=== PATIENT | female | born 1950 ===

== ENCOUNTER 2023-12-15 13:45 | Outpatient (AMB) | payer MEDICARE, MEDICAID, SELFPAY ==
--- NOTE | 2023-12-15 13:52 | MHC.OFFWIV ---
Intake Vital Signs 12/15/23 13:54 Height 5 ft 7 in Weight 105 lb BMI 16.4 BP 110/70 Blood Pressure Location Rt brachial Position Sitting Pulse 92 Pulse Source Pulse Oximeter Pulse Oximetry (%) 97 Intake Visit Reasons: DIRECTOR OF TRANSPORTATION Scrape on back of leg, infected? Intake Note: pt is here for scrape on leg and concerned of infection Patient Tobacco Use Status: Never used Tobacco Allergies peanut Allergy (Severe, Verified 12/15/23 13:54) Anaphylaxis Do you need a note to return to daycare/school/sports/work: No HPI HPI Comments History of Present Illness Details Patient is a 73-year-old female complaining of a wound to the back of her right calf. She tells me she was going down the stairs approximately 3 weeks ago with her home and she scraped the back of it. She did wash it out right away with hydrogen peroxide and has tried a variety of different ointments on it to make it heal including Neosporin. However she states that none of these have worked. She denies being diabetic. She is concerned that the wound is infected because it is not healing. [facility] Social History Patient Tobacco Use Status: Never used Tobacco Review of Systems Const All systems reviewed & are unremarkable except as noted in HPI and below Physical Exam Vital Signs: Last Vital Signs Pulse 92 12/15/23 13:54 BP 110/70 12/15/23 13:54 Pulse Ox 97 12/15/23 13:54 BMI result Body Mass Index 16.4 Const General: cooperative, healthy appearing, comfortable, no acute distress and well developed Orientation/consciousness: patient oriented x3 Limitations: no limitations HEENT Head: Yes normal to inspection Eyes General: appearance normal, both eyes and all related structures Neck Neck: Yes normal visual inspection and Yes full ROM Resp Effort & Inspection: normal respiratory effort and able to speak in complete sentences Skin Other: 3cm round ulceration on posterior right leg; no erythema, no warmth, no ecchymosis, no lesions Neuro General: patient oriented x3 Extrem General: Yes normal to inspection Assessment & Plan Assessment & Plan (1) Non-healing wound of right lower extremity: Code(s): S81.801A - Unspecified open wound, right lower leg, initial encounter Plan: Applied Xeroform with nonadherent dressing and gauze to keep in place, gave patient supplies so that she may change the dressing every 48 hours and after 1 week, she should start using Aquaphor and leave the wound and covered. If no improvement in her wound, she should follow up with her PCP Plan See above Coding Level of Care Code New Pt Level 4 (00936) Diagnoses Non-healing wound of right lower extremity S81.801A
[2023-12-15 13:54] VITALS: BP 110/70; PULSE 92; O2SAT 97; BMI 16.4
== END 2023-12-15 14:47 | disposition home or self-care (01) ==
PROVIDERS: Visit Provider Physician Assistant
DX: S81.801A Unspecified open wound, right lower leg, initial encounter (principal)

== ENCOUNTER → 2023-12-15 13:45 | Outpatient (BNVA) | payer MEDICARE, MEDICAID, SELFPAY | PROVIDERS: Visit Provider Physician Assistant | DX: S81.801A Unspecified open wound, right lower leg, initial encounter (principal) | CPT/HCPCS: 99202 ==

== ENCOUNTER 2024-01-29 12:30 | Outpatient (AMB) | payer MEDICARE, MEDICAID, SELFPAY ==
[2024-01-29 12:31] VITALS: BP 140/72; PULSE 86; O2SAT 93
--- NOTE | 2024-01-29 12:31 | AM.OFFWIN_ITS ---
Intake Vital Signs 3 01/29/24 12:31 Height 5 ft 7 in BP 140/72 H Blood Pressure Location Lt brachial Position Sitting Pulse 86 Pulse Source Pulse Oximeter Pulse Oximetry (%) 93 Intake Visit Reasons: EP Cut on back of RT leg Intake Note: pt is here for a wound that hasnt healed in over 1 month and 1/2. Patient Tobacco Use Status: Never used Tobacco Allergies peanut Allergy (Severe, Verified 01/29/24 12:32) Anaphylaxis Do you need a note to return to daycare/school/sports/work: No HPI HPI Comments 2 History of Present Illness0 Details Patient is a 73yo F who presents with R leg wound She hit it on metal over a month ago and was seen here Tx with xerform dressing without antibiotics Never followed up with PCP as she said she goes to [facility] and does not want to seek care there She denies fever or chills + worsening yellow drainage x a few days Some tenderness to the wound but surrounding area without pain Has not tried anything besides keeping clean and applying bandages She is a chronic smoker with COPD PFSH Social History Patient Tobacco Use Status: Never used Tobacco Review of Systems Const Denies chills and Denies fever(s) Resp Reports cough (chronic) Skin/Breast Reports sores and Reports wounds Physical Exam Vital Signs: Last Vital Signs Pulse 86 01/29/24 12:31 BP 140/72 H 01/29/24 12:31 Pulse Ox 93 01/29/24 12:31 General: Non-toxic, NAD. Speaking full sentences. Skin: Warm dry throughout. R posterior calf imaged above. Pt has oval approx 3cm x 2cm ulcerative region with central yellow drainage surrounded by erythema. Minimal tenderness to palpation surrounding skin edges. No malodorous smell. Eye: EOMI MSK: Full ROM extremities. Neurology: Alert. No aphasia or facial droop. Gait without abnormality Psych: Good mood and affect Assessment & Plan Assessment & Plan (1) Leg wound, right: Code(s): S81.801A - Unspecified open wound, right lower leg, initial encounter Qualifiers: Encounter type: initial encounter Qualified Code(s): S81.801A - Unspecified open wound, right lower leg, initial encounter Plan: Pt seen and evaluated Concern for PAD due to smoking hx and poor wound healing She has not seen PCP or wound care for this Referral to woundcare given Doxy with food She is aware that she needs good follow up about this as worsened infection could prove poor outcomes Dressing applied in office (2) Cellulitis: Code(s): L03.90 - Cellulitis, unspecified Qualifiers: Site of cellulitis: extremity Site of cellulitis of extremity: lower extremity Laterality: right Qualified Code(s): L03.115 - Cellulitis of right lower limb Plan: see above. All questions answered upon time of discharge Orders: Referrals 2 Wound Care Referral S81.801A - Unspecified open wound, right lower leg, initial encounter Medications: New 2 doxycycline hyclate 100 mg PO BID 20 caps 0RF Coding Level of Care Code Est Pt Level 3 (25126) Diagnoses Wound of right lower extremity, initial encounter S81.801A Encounter type: initial encounter Cellulitis of right lower extremity L03.115 Site of cellulitis: extremity Site of cellulitis of extremity: lower extremity Laterality: right
== END 2024-01-29 13:34 | disposition home or self-care (01) ==
PROVIDERS: Visit Provider Physician Assistant
DX: S81.801A Unspecified open wound, right lower leg, initial encounter (principal); L03.115 Cellulitis of right lower limb

== ENCOUNTER → 2024-01-29 12:30 | Outpatient (BNVA) | payer MEDICARE, MEDICAID, SELFPAY | PROVIDERS: Visit Provider Physician Assistant | DX: S81.801A Unspecified open wound, right lower leg, initial encounter (principal); L03.115 Cellulitis of right lower limb; W22.8XXA Striking against or struck by other objects, initial encounter; Y93.9 Activity, unspecified; Y92.9 Unspecified place or not applicable; Y99.9 Unspecified external cause status | CPT/HCPCS: 99212 ==

== ENCOUNTER 2024-03-02 13:12 | Outpatient (REF) | payer MEDICARE, OTHER, SELFPAY ==
--- NOTE | ~2024-03-02 | US_ITS ---
CLINICAL HISTORY: atherosclerosis, non-healing wounds Arterial duplex ultrasound bilateral lower extremity Comparison: None Findings: Biphasic flow in the left common femoral artery. Monophasic in the proximal left femoral artery. There appears to be heavy circumferential noncalcified atheromatous plaque in the proximal and mid femoral artery. No flow is seen within the distal aspect of the mid left femoral artery with large surrounding collateral vessels. No flow identified within the distal left femoral artery. Near the adductor hiatus there is reconstitution of the femoral artery. Monophasic flow seen from the popliteal artery into the calf vessels on the left. Monophasic flow within the right common femoral artery. The proximal, mid and distal right femoral artery are occluded without flow. Reconstitution of the level of the popliteal artery with monophasic flow into the calf vessels. No focal stenosis, aneurysm or occlusion identified. Velocities are within normal range. MARC: Right posterior tibial 0.38 Right dorsalis pedis 0.44 Left posterior tibial 0.44 Left dorsalis pedis is 0.49 IMPRESSION: 1. Occluded proximal mid and distal right SFA with reconstitution of the level of the popliteal artery. 2. Occluded mid and distal SFA on the left with reconstitution in the distal aspect of the superficial femoral artery just at the level of the adductor hiatus. 3. Flow with monophasic waveforms seen from the popliteal artery into the calf vessels bilaterally. 4. MARC suggest severe peripheral vascular disease bilaterally. This document has been electronically signed by: Annetta Sellers MD on 03/04/2024 05:45:41
== END 2024-03-02 13:13 | disposition home or self-care (01) ==
LOC: HO.US 13:12
PROVIDERS: PCP Internal Medicine; Visit Provider Surgery
DX: I70.232 Atherosclerosis of native arteries of right leg with ulceration of calf (principal); L97.812 Non-pressure chronic ulcer of other part of right lower leg with fat layer exposed
CPT/HCPCS: 93922; 93925

== ENCOUNTER → 2024-03-02 13:37 | Outpatient (BNV) | payer MEDICARE, SELFPAY | PROVIDERS: PCP Internal Medicine; Visit Provider Radiology Diagnostic Radiology | DX: I70.92 Chronic total occlusion of artery of the extremities (principal) | CPT/HCPCS: 93922 ==

== ENCOUNTER 2024-04-14 14:29 | Outpatient (AMB) | payer MEDICARE, SELFPAY ==
--- NOTE | 2024-04-14 14:37 | MHC.OFFWIV ---
Intake Vital Signs 04/14/24 14:38 Weight 87 lb BP 110/64 Blood Pressure Location Rt brachial Position Sitting Pulse 125 H Pulse Source Pulse Oximeter Temp 97.3 F Temp Source Oral Pulse Oximetry (%) 96 Oxygen Delivery Method Room Air Intake Visit Reasons: EP COPD, SOB Intake Note: Patient here for SOB,she does have COPD. Patient Tobacco Use Status: Never used Tobacco Allergies peanut Allergy (Severe, Verified 04/14/24 14:37) Anaphylaxis Do you need a note to return to daycare/school/sports/work: No HPI HPI Comments History of Present Illness Details This is a 73-year-old female with past medical history significant for chronic obstructive pulmonary disease who presented to the walk-in clinic today complaining of shortness of breath for the past several days. Patient states she has a history of COPD although she does not typically experience shortness of breath. She started to develop dyspnea on exertion about 3 days ago and this has been progressively worsening. She has a chronic dry cough and states she has not noticed any new or worsening cough and she has not noticed any sputum production or purulence. She denies any fevers or chills. She denies any upper respiratory symptoms such as congestion, rhinorrhea, sore throat. She denies any chest pain. She denies any hemoptysis. She states she does have occasional lightheadedness but denies any syncope or falls. Of note, patient recently underwent a vascular surgical procedure in which she had two stents placed in her right leg . She had this procedure on 03/31/24. Patient states she in on aspirin and eliquis for VTE prophylaxis following this procedure. Patient does have some swelling of her right foot but states that she recently stubbed her toe and believes it could be related to this. She is followed by wound care clinic for a non-healing wound to her right lower extremity. PFS Social History Patient Tobacco Use Status: Never used Tobacco Review of Systems Const All systems reviewed & are unremarkable except as noted in HPI and below Reports no additional complaints Eyes Reports no additional complaints ENT Reports no additional complaints Card Reports no additional complaints Resp Reports no additional complaints GI Reports no additional complaints Reports no additional complaints Musc Reports no additional complaints Skin/Breast Reports system reviewed and no additional complaints, except as documented Neuro Reports no additional complaints Psych Reports no additional complaints Endo Reports no additional complaints Glynn/Lymph Reports no additional complaints Aller/Immun Reports no additional complaints Physical Exam Vital Signs: Last Vital Signs Pulse 125 H 04/14/24 14:38 BP 110/64 04/14/24 14:38 Pulse Ox 96 04/14/24 14:38 Oxygen Delivery Method Room Air 04/14/24 14:38 Const Other: Vital signs reviewed. Constitutional: Non-toxic appearing. No acute distress. She is thin and frail appearing. HEENT: Normocephalic and atraumatic. PERRL/EOMI. Skin: Warm and dry. No rashes or lesions noted. Chronic wound of posterior right calf. Neck: Full and painless range of motion. No cervical lymphadenopathy. Cardio: Regular rate and rhythm. No murmurs, gallops, or rubs. + Edema of right lower foot. No JVD. Pulmonary: No respiratory distress. No accessory muscle usage. Diminished breath sounds throughout but otherwise clear to auscultation bilaterally without wheezing, crackles, or rhonchi. Gastrointestinal: Soft, non-tender, and non-distended in all 4 quadrants. Musculoskeletal: Normal range of motion in joints throughout the body. No deformity or other signs of injury. Neuro: Alert and oriented x4. Cranial nerves 2-12 grossly intact. No focal deficits appreciated. Psych: Normal mood and affect. Assessment & Plan Assessment & Plan (1) Shortness of breath on exertion: Code(s): R06.02 - Shortness of breath Plan: This is a 73-year-old female with past medical history significant for chronic obstructive pulmonary disease and recent vascular surgery with stent placement x 2 to the right lower extremity on 03/31/2024 who presented to the walk-in clinic complaining of shortness of breath with exertion for the past several days. The patient is maintaining her oxygen saturations on room air; however, she is moderately tachycardic with heart rate of 125 beats per minute. She was also found to have swelling of her right foot. Given patient's complaint of shortness of breath combined with tachycardia, right lower extremity swelling, and recent vascular surgery, there is high suspicion for PE/DVT (Wells score of 9.0 points [40.6% chance of PE]). I explained to the patient that PE/DVT is at the top of my differential diagnosis given her history and physical exam and given the fact that other diagnoses such as pneumonia, acute COPD excaerbation, or congestive heart failure seem less likely at this time and I do not have another explanation for her symptoms. Patient does not have any new or worsening cough or sputum production/purulence so pneumonia is unlikely (offered chest x-ray to definitively rule-out but patient declined at this time). Her lung sounds are diminished but clear to auscultation bilaterally without wheezing and she has no viral upper respiratory symptoms so acute COPD exacerbation or viral URI is unlikely. She has no crackles/rales or known cardiac history so acute congestive heart failure seems less likely. She has diminished but has not breath sounds at the bases so pneumothorax versus pleural effusion is unlikely (again, offered chest x-ray to definitively rule out but patient declined at this time). This thought process and differential diagnosis was explained to the patient in detail and in layman's terms. She was able to provide teach back and she is alert and oriented x 4 and in my medical opinion, she has the capacity to make her own medical decitions. I strongly recommended and advised that the patient proceed directly to the emergency room so PE/DVT can be definitively ruled out as an untreated PE/DVT can be fatal if untreated. Patient declined transfer to the emergency room at this time despite education regarding PE/DVT. I explained to the patient the PE can lead to , disability, and pain/suffering but she continues to decline transfer to the emergency room. Patient signed AMA paperwork. Patient requested prednisone treatment to see if this helps her symptoms but I explained to her that prednisone will not help her symptoms if her symptoms are caused by a PE. Patient verbalized her understanding but would like to try steroid treatment. She was given a prescription for a prednisone taper as detailed below. Patient was instructed to proceed directly to the emergency room if she were to develop worsening shortness of breath, worsening lower extremity edema, hypoxia (SpO2 less than 90%), or syncope. She was made aware that the emergency room is open and available 07/09 if she were to change her mind and wished to undergo further evaluation. Patient was extremely appreciative of the concern, education, and help provided at the walk-in clinic today. Medications: New prednisone Take 4 tablets daily x3 days followed by 3 tablets daily x3 days followed by 2 tablets daily x3 days followed by 1 tablet daily x3 days. 10 mg PO DIRECTED 30 tabs 0RF Coding Level of Care Code Est Pt Level 3 (53036) Diagnoses Shortness of breath on exertion R06.02
[2024-04-14 14:38] VITALS: BP 110/64; PULSE 125; TEMP 36.3; O2SAT 96
== END 2024-04-14 16:24 | disposition home or self-care (01) ==
PROVIDERS: PCP Internal Medicine; Visit Provider Physician Assistant Medical
DX: R06.02 Shortness of breath (principal)

== ENCOUNTER → 2024-04-14 14:29 | Outpatient (BNVA) | payer MEDICARE, SELFPAY | PROVIDERS: PCP Internal Medicine | DX: R06.02 Shortness of breath (principal) | CPT/HCPCS: 99212 ==

== ENCOUNTER 2024-04-26 12:22 | Emergency (ER) | payer MEDICARE, MEDICAID, SELFPAY ==
--- NOTE | ~2024-04-26 | US_ITS ---
EXAMINATION: US LOWER EXTREMITY VEINS LIMITED FOLLOW UP RIGHT HISTORY: pain COMPARISON: There are no prior studies for comparison. TECHNIQUE: Duplex and color Doppler sonographic examination of the deep venous system of the right lower extremity was performed. FINDINGS: The common femoral, superficial femoral, and popliteal veins are patent demonstrating normal compressibility, spontaneous flow, and augmentation. There is a normal color and spectral Doppler waveform appearance of the visualized deep venous system above the knee. The posterior tibial and peroneal veins are patent. Incidental note is made of a large amount of calcified plaque in the femoral artery. US/US venous duplex LE RT IMPRESSION: No evidence of acute DVT in the right lower extremity. Electronically signed by: Clem Alberto MD 04/26/2024 03:30 PM EDT
--- NOTE | ~2024-04-26 | XR_ITS ---
EXAMINATION: XR CHEST 2 VIEWS HISTORY: pain COMPARISON: There are no prior studies for comparison. FINDINGS: PA and lateral views of the chest are submitted. The lungs are hyperinflated, consistent with COPD. There is a suggestion of a faint 10 mm nodular opacity in the left upper lobe. The lungs are otherwise clear. There is no pleural effusion, pneumothorax, or pulmonary vascular congestion. The heart is normal in size. There is degenerative disc disease of the spine. XR/XR chest 2V IMPRESSION: COPD. Possible left upper lobe nodule. Further evaluation with chest CT is recommended. Electronically signed by: Clem Alberto MD 04/26/2024 01:48 PM EDT
--- NOTE | ~2024-04-26 | CT_ITS ---
CLINICAL HISTORY: sob CT angiography chest using contrast. 3-D postprocessing Comparison: CR/LA/SR - XR CHEST 2V - 04/26/24 13:22 EDT Findings: No pulmonary embolism. No thoracic aorta aneurysm. Heart size within normal limits. RV/LV ratio normal. Coronary artery calcifications and/or coronary artery stents are visualized. Moderate to severe centrilobular emphysema present. Mild biapical pleural-parenchymal thickening/scarring. No focal pulmonary consolidation, pneumothorax, or pleural effusion. Trace left basilar subsegmental atelectasis versus scarring. The lungs are hyperexpanded. Visualized upper abdomen unremarkable. Mild, chronic appearing T3 compression deformity present. Impression: 1. Negative for pulmonary embolism. 2. Moderate to severe centrilobular emphysema with associated pulmonary hyperexpansion. No focal pulmonary consolidation, pneumothorax, or pleural effusion. This document has been electronically signed by: Jorge Luis Madrigal MD on 04/26/2024 21:26:18
[2024-04-26 12:47] VITALS: BP 139/77; PULSE 118; RESP 19; TEMP 36.6; O2SAT 96; BMI 16.4
--- NOTE | 2024-04-26 12:53 | ED.EXTPRO ---
HPI - Extremity Problem General Chief complaint: Extremity Injury, Upper Stated complaint: COPD Time Seen by Provider: 04/26/24 19:45 Source: patient Limitations: no limitations History of Present Illness ED Provider: Obdulia Scott PA-C HPI Narrative: 73 y/o F with hx of peripheral artery disease, peripheral vascular disease on apixaban, hypertension, hyperlipidemia, ongoing tobacco abuse, COPD, presents for evaluation of shortness of breath. Patient states over the past 2 weeks she has had progression of her baseline shortness of breath. She is now noting dyspnea with exertion with the activities of daily living. Denies chest pain, fever, sick contacts with viral symptoms. Related Data Home Medications ?Medication ?Instructions ?Recorded ?Confirmed amlodipine 5 mg tablet mg PO 12/15/23 budesonide 160 mcg-glycopyr 9 inh inhalation 12/15/23 mcg-formot 4.8 mcg/actuation HFA inhaler (Breztri Aerosphere) ipratropium 0.5 mg-albuterol 3 mg ml inhalation 12/15/23 (2.5 mg base)/3 mL nebulization soln ipratropium 20 mcg-albuterol 100 1 puff inhalation QID 12/15/23 mcg/actuation mist for inhalation (Combivent Respimat) apixaban 5 mg tablet (Eliquis) mg PO BID 04/14/24 Previous Rx's ?Medication ?Instructions ?Recorded prednisone 10 mg tablet 10 mg PO DIRECTED #30 tabs 04/14/24 amoxicillin 875 mg-potassium 1 tab PO Q12H #19 tabs 04/26/24 clavulanate 125 mg tablet azithromycin 250 mg tablet 250 mg PO DAILY 4 days #4 tabs 04/26/24 prednisone 20 mg tablet 40 mg (2 x 20 mg) PO DAILY #8 tabs 04/26/24 Allergies Allergy/AdvReac Type Severity Reaction Status Date / Time peanut Allergy Severe Anaphylaxis Verified 04/26/24 12:52 Review of Systems Review of Systems: Yes all other systems are reviewed and are negative Constitutional: Constitutional: Denies fatigue and Denies fever(s) Cardiovascular: Cardiovascular: Denies chest pain, Reports dyspnea and Reports dyspnea on exertion Respiratory: Respiratory: Denies chest congestion, Reports dyspnea, Reports dyspnea on exertion and Denies wheezing Endocrine: Endocrine: Denies fatigue Allergic/Immunologic: Allergic/Immunologic: Denies wheezing PMFSH Past Medical History Attestation statement: The following information was validated with the patient. Social History Social History Patient Tobacco Use Status: Never used Tobacco Smoked in Last 30 Days: No Use of substances other than those prescribed or required for medical reasons: No Advance Directives: No Advance Directives Information Provided: No Do you have a plan to hurt others: No Plan Physical Exam Vital Signs: Vital Signs: Last Vital Signs Temp 98 F 04/26/24 18:46 Pulse 122 H 04/26/24 18:46 Resp 19 04/26/24 18:46 BP 146/77 H 04/26/24 18:46 Pulse Ox 94 04/26/24 18:46 O2 Del Method Room Air 04/26/24 18:46 BMI result Body Mass Index 16.4 Const: Other: Alert, Orientation/consciousness: patient oriented x3 Resp: Other: Nonlabored respirations, speaking in full sentences, or air movement, no wheezing no cough Cardio: Other: No peripheral edema Skin: Other: Warm dry no rash Neuro: General: patient oriented x3, gait normal, no focal motor deficits and CN's II-XI intact bilaterally Psych: Other: Cooperative Course Course Course Narrative: RME, this is a rapid medical exam performed by Tremaine Dudley please refer to primary provider for complete H&P- 73-year-old female with past medical history significant for peripheral artery disease and peripheral vascular disease, COPD presents for evaluation of shortness of breath and right leg pain. Patient had any a right leg angioplasty your name on March 29 for due to peripheral artery occlusion. She reports that she recently followed up with her vascular surgeon. She is here today primarily for shortness of breath and she feels like she can get a deep breathing. Her oxygen saturation is 95% on room air but she was tachycardic to about 120. Plan for basic labs, chest x-ray and DVT scan. Medications Administered Discontinued Medications Generic Name Dose Route Start Last Admin Trade Name Freq PRN Reason Stop Dose Admin Iohexol 100 ml 04/26/24 20:17 04/26/24 20:17 Iohexol 350 Mg/Ml 100 Ml Infus..Btl IV 04/26/24 20:18 65 ml ONCE ONE Administration Medical Decision Making Medical Decision Making MDM Narrative: 73 y/o F with hx of peripheral artery disease, peripheral vascular disease on apixaban, hypertension, hyperlipidemia, ongoing tobacco abuse, COPD, presents for evaluation of shortness of breath. Patient states over the past 2 weeks she has had progression of her baseline shortness of breath. She is now noting dyspnea with exertion with the activities of daily living. Denies chest pain, fever, sick contacts with viral symptoms. Problem: Peripheral arterial disease, peripheral vascular disease, COPD, ongoing tobacco abuse History: Per patient I have considered the following differential diagnoses: COPD exacerbation, bronchitis, pneumonia, PE, ACS, new heart failure Plan: ACS and new heart failure were both considered, Screening labs including cardiac enzymes, BNP, EKG and chest x-ray were obtained from triage. To note, she has no chest pain and she is not overtly hypertensive. Her presentation is not consistent with a COPD exacerbation, the patient was not actively coughing there was no wheezing, she is not hypoxic. There was no evidence of pneumonia on chest x-ray. I do feel her symptoms are likely secondary to progression of the COPD process itself. The patient was tachycardic, I am therefore considering PE, she has high-risk, we will defer the dimer and obtain a CTA. In discussion with the patient, she is not here for right lower extremity pain. She has a chronic wound, there has been no change in the wound, she is followed by wound care. She also does not have objective unilateral calf pain or swelling. A DVT study was ordered from triage it was negative. I did note that she has a leukocytosis, however she is frequently on steroids. have independently reviewed the following tests: Labs: Leukocytosis with left shift, thrombocytosis, no electrolyte abnormality, troponin x2 are flat, bnp 81 EKG: Normal sinus rhythm, rate of 90, ST and T-wave abnormality noted anterior leads, no active ischemic changes, QTC 457 Chest x-ray: XR/XR chest 2V IMPRESSION: COPD. Possible left upper lobe nodule. Further evaluation with chest CT is recommended. DVT study right lower extremity: FINDINGS: The common femoral, superficial femoral, and popliteal veins are patent demonstrating normal compressibility, spontaneous flow, and augmentation. There is a normal color and spectral Doppler waveform appearance of the visualized deep venous system above the knee. The posterior tibial and peroneal veins are patent. Incidental note is made of a large amount of calcified plaque in the femoral artery. US/US venous duplex LE RT IMPRESSION: No evidence of acute DVT in the right lower extremity. CT angio Findings: No pulmonary embolism. No thoracic aorta aneurysm. Heart size within normal limits. RV/LV ratio normal. Coronary artery calcifications and/or coronary artery stents are visualized. Moderate to severe centrilobular emphysema present. Mild biapical pleural-parenchymal thickening/scarring. No focal pulmonary consolidation, pneumothorax, or pleural effusion. Trace left basilar subsegmental atelectasis versus scarring. The lungs are hyperexpanded. Visualized upper abdomen unremarkable. Mild, chronic appearing T3 compression deformity present. Impression: 1. Negative for pulmonary embolism. 2. Moderate to severe centrilobular emphysema with associated pulmonary hyperexpansion. No focal pulmonary consolidation, pneumothorax, or pleural effusion. Lab Data 04/26/24 13:04 04/26/24 13:04 Labs: Lab Results 04/26/24 04/26/24 Range/Units 13:04 20:36 WBC 18.1 H (4.8-10.8) X10*3/uL RBC 3.96 L (4.20-5.50) X10*6/uL Hgb 11.9 L (12.0-16.0) g/dl Hct 37.0 (37.0-47.0) % MCV 93.4 (80.0-98.0) fL MCH 30.1 (27.0-33.0) pg MCHC 32.2 (31.0-35.0) g/dl RDW 12.8 (11.0-16.0) % Plt Count 439 H (160-400) X10*3/uL MPV 8.0 L (9.4-12.3) fL Immature Gran % (Auto) Cancelled Neut % (Auto) Cancelled Lymph % (Auto) Cancelled [place] % (Auto) Cancelled Eos % (Auto) Cancelled Baso % (Auto) Cancelled Lymph # (Auto) Cancelled [place] # (Auto) Cancelled Eos # (Auto) Cancelled Baso # (Auto) Cancelled Abs Immat Gran (auto) Cancelled Absolute Neuts (auto) Cancelled Absolute Nucleated RBC 0.000 (0.0-0.012) X10*3/uL Nucleated RBC % (auto) 0.0 (0.0-0.2) /100WBC Neutrophils % (Manual) 66 (45-73) % Band Neutrophils % 0 L (3-5) % Lymphocytes % (Manual) 21 (20-40) % Atypical Lymphs % (Man) 2 (0-6) % Monocytes % (Manual) 10 (2-11) % Eosinophils % (Manual) 1 (0-4) % Abs Neuts (Manual) 11.9 H (2.0-8.3) X10*3/uL Lymphocytes # (Manual) 3.8 (1.2-4.9) X10*3/uL Atyp Lymphs # (Manual) 0.4 x10*3/uL Monocytes # (Manual) 1.8 H (0.1-1.2) X10*3/uL Eosinophils # (Manual) 0.2 (0.0-0.4) X10*3/uL Toxic Vacuolation PRESENT Platelet Estimate SLIGHTLY INCREASED (NORMAL) Large Platelets PRESENT Plt Morphology Comment NOTE RBC Morphology NORMAL Sodium 137 (135-145) mmol/L Potassium 3.9 (3.3-5.1) mmol/L Chloride 101 (96-108) mmol/L Carbon Dioxide 29 (22-29) mmol/L Anion Gap 11 L (12-20) BUN 18 H (9-16) mg/dL Creatinine 0.66 (0.5-1.4) mg/dL Estim Creat Clear Calc 57.9 Estimated GFR > 60 Random Glucose 104 (60-115) mg/dL Calcium 9.0 (8.4-10.2) mg/dL Total Bilirubin 0.3 (0.0-1.0) mg/dL AST 20 (5-31) U/L ALT 11 (0-31) U/L Alkaline Phosphatase 102 (39-117) U/L Troponin I High Sens 7.9 8.0 (<3.5-17.0) ng/L B-Natriuretic Peptide 81 (<100) pg/mL Total Protein 7.0 (6.5-8.0) g/dL Albumin 3.9 (3.5-5.0) g/dL Discharge Plan Discharge Clinical Impression: Dyspnea on exertion, COPD (chronic obstructive pulmonary disease) Patient Disposition: Home, Self-Care Instructions: COPD (Chronic Obstructive Pulmonary Disease) (ED) Additional Instructions: I am treating you for suspect COPD exacerbation versus progression of your disease process. See home care instructions. Use your home nebulizer as directed. Take the steroid as directed. Take both antibiotics as directed. All of your screening labs including 2 cardiac enzymes were normal, there were no concerning changes on your EKG, there was no pneumonia on the chest x-ray. The CT scan of the chest was also we are for pneumonia, you do not have a clot in the lung. It does suggest that you have had progression of your COPD. You need to follow up with your primary care provider for further assessment, they may send you to a demonstrator knitting. Prescriptions: New amoxicillin-pot clavulanate 875-125 mg tablet 1 tab PO Q12H Qty: 19 0RF prednisone 20 mg tablet 40 mg PO DAILY Qty: 8 0RF azithromycin 250 mg tablet 250 mg PO DAILY 4 Days Qty: 4 0RF Rx Instructions: start on day 2 of therapy No Action Breztri Aerosphere 160-9-4.8 mcg/actuation HFA aerosol inhaler inhalation ipratropium-albuterol 0.5 mg-3 mg(2.5 mg base)/3 mL solution for nebulization inhalation Combivent Respimat 20-100 mcg/actuation mist 1 puff inhalation QID amlodipine 5 mg tablet PO Eliquis 5 mg tablet PO BID prednisone 10 mg tablet 10 mg PO DIRECTED Qty: 30 0RF Rx Instructions: Take 4 tablets daily x3 days followed by 3 tablets daily x3 days followed by 2 tablets daily x3 days followed by 1 tablet daily x3 days. Print Language: Fijian
[2024-04-26 13:10] LABS: Hemoglobin 11.9 g/dl (12.0-16.0); Mean Corpuscular HGB Conc 32.2 g/dl (31.0-35.0); Mean Corpuscular Hemoglobin 30.1 pg (27.0-33.0); Mean Corpuscular Volume 93.4 fL (80.0-98.0); Platelet Count 439 X10*3/uL (160-400); Red Blood Count 3.96 X10*6/uL (4.20-5.50); Red Cell Distribution Width 12.8 % (11.0-16.0); White Blood Count 18.1 X10*3/uL (4.8-10.8)
[2024-04-26 13:26] LABS: Alanine Aminotransferase 11 U/L (0-31); Albumin Level 3.9 g/dL (3.5-5.0); Alkaline Phosphatase 102 U/L (39-117); Anion Gap 11 (12-20); Aspartate Amino Transferase 20 U/L (5-31); Bilirubin Total 0.3 mg/dL (0.0-1.0); Blood Urea Nitrogen 18 mg/dL (9-16); Carbon Dioxide 29 mmol/L (22-29); Chloride 101 mmol/L (96-108); Creatinine Clr Calc Pharmacy 57.9; Estimated Glomerular Filt Rate > 60; Glucose Random 104 mg/dL (60-115); Potassium 3.9 mmol/L (3.3-5.1); Sodium 137 mmol/L (135-145)
[2024-04-26 13:31] LABS: B Type Natriuretic Peptide 81 pg/mL (<100)
[2024-04-26 13:32] LABS: Atypical Lymph Absolute Manual 0.4 x10*3/uL; Atypical Lymphs Percent Manual 2 % (0-6); Band Neutrophils Percent 0 % (3-5); Eosinophils Absolute Manual 0.2 X10*3/uL (0.0-0.4); Eosinophils Percent Manual 1 % (0-4); Lymphocytes Absolute Manual 3.8 X10*3/uL (1.2-4.9); Lymphocytes Percent Manual 21 % (20-40); Monocytes Absolute Manual 1.8 X10*3/uL (0.1-1.2); Monocytes Percent Manual 10 % (2-11); Neutrophils Absolute Manual 11.9 X10*3/uL (2.0-8.3); Neutrophils Percent Manual 66 % (45-73)
[2024-04-26 13:33] LABS: Large Platelet PRESENT; Platelet Estimate SLIGHTLY INCREASED (NORMAL); Platelet Morphology Comment NOTE; RBC Morphology NORMAL; Toxic Vacuolation PRESENT; Troponin-I High Sensitivity 7.9 ng/L (<3.5-17.0)
[2024-04-26 18:46] VITALS: BP 146/77; PULSE 122; RESP 19; TEMP 36.6; O2SAT 94
--- NOTE | 2024-04-26 20:12 | ECG_ITS ---
Test Reason : SOB Blood Pressure : */* mmHG Vent. Rate : 90 BPM Atrial Rate : 90 BPM P-R Int : 134 ms QRS Dur : 84 ms QT Int : 374 ms P-R-T Axes : 78 69 67 degrees QTcB Int : 457 ms Artifact in tracing Normal sinus rhythm Minimal voltage criteria for LVH, may be normal variant ( [place] product ) Septal infarct , age undetermined Nonspecific ST and T wave abnormality Abnormal ECG No previous ECGs available Referred By: Obdulia Scott Electronically Signed By: REGGIE HUGHES
[2024-04-26] MEDS: iohexoL 350 MG/ML 100 ML INFUS..BTL IV (20:17)
[2024-04-26] MEDS: Amoxicillin/Potassium Clav 875 MG TABLET PO (22:00)
[2024-04-26] MEDS: predniSONE 20 MG TABLET 40 MG PO (22:00)
[2024-04-26] MEDS: Azithromycin 500 MG TABLET PO (22:00)
[2024-04-26 22:16] VITALS: BP 129/69; PULSE 99; RESP 18; TEMP 36.6; O2SAT 96
== END 2024-04-26 22:16 | disposition home or self-care (01) ==
PROVIDERS: Physician Assistant; Physician Assistant Medical; Emergency Provider Emergency Medicine Emergency Medical Services; PCP Internal Medicine
DX: J44.9 Chronic obstructive pulmonary disease, unspecified (principal); R06.02 Shortness of breath; R94.31 Abnormal electrocardiogram [ECG] [EKG]; R60.0 Localized edema; Z79.899 Other long term (current) drug therapy
CPT/HCPCS: 36415; 71046; 71275; 80053; 83880; 84484; 85007; 85027; 93005; 93971; 99284; Q9967

== ENCOUNTER → 2024-04-26 12:52 | Outpatient (BNV) | payer MEDICARE, SELFPAY | PROVIDERS: PCP Internal Medicine; Visit Provider Radiology Diagnostic Radiology | DX: J43.2 Centrilobular emphysema (principal); M79.661 Pain in right lower leg; J44.9 Chronic obstructive pulmonary disease, unspecified | CPT/HCPCS: 71046; 71275; 93971 ==

== ENCOUNTER → 2024-04-26 20:12 | Outpatient (BNV) | payer MEDICARE, MEDICAID, SELFPAY | PROVIDERS: Emergency Provider Emergency Medicine Emergency Medical Services; PCP Internal Medicine; Visit Provider Internal Medicine | DX: R94.31 Abnormal electrocardiogram [ECG] [EKG] (principal); R06.02 Shortness of breath | CPT/HCPCS: 93010 ==

== ENCOUNTER 2024-05-29 14:15 | Outpatient (REF) | payer MEDICARE, MEDICAID, SELFPAY ==
[2024-05-29 17:50] LABS: Influenza A PCR NEGATIVE (Negative); Influenza B PCR NEGATIVE (Negative); Resp Syncy Virus RNA Qual PCR NEGATIVE (Negative); SARS COV2 PCR INHOUSE NEGATIVE (Negative)
== END 2024-05-29 14:16 | disposition home or self-care (01) ==
LOC: HO.LAB 14:15
PROVIDERS: Nurse Practitioner Family; PCP Internal Medicine
DX: J44.1 Chronic obstructive pulmonary disease with (acute) exacerbation (principal); R09.89 Other specified symptoms and signs involving the circulatory and respiratory systems
CPT/HCPCS: 0241U; 99212

== ENCOUNTER 2024-05-29 14:15 | Outpatient (AMB) | payer MEDICARE, MEDICAID, SELFPAY ==
--- NOTE | 2024-05-29 14:21 | AM.OFFWIN_ITS ---
Intake Vital Signs 05/29/24 14:25 BP 122/68 Blood Pressure Location Lt brachial Position Sitting Pulse 129 H Pulse Source Pulse Oximeter Temp 98 F Temp Source Oral Pulse Oximetry (%) 97 Oxygen Delivery Method Room Air Intake Visit Reasons: EP-sob Patient Tobacco Use Status: Never used Tobacco Allergies peanut Allergy (Severe, Verified 04/26/24 12:52) Anaphylaxis Do you need a note to return to daycare/school/sports/work: No HPI HPI Comments History of Present Illness Details 73 y/o Female patient who presents to [facility] clinic with c/o SOB. H/o COPD and chronic cigarette smoker. She has been seen multiple times in the [facility] for similar symptoms. Last Seen at ED 04/26 had CTA that showed: Moderate to severe centrilobular emphysema present. Mild biapical pleural-parenchymal thickening/scarring. No focal pulmonary consolidation, pneumothorax, or pleural effusion. Trace left basilar subsegmental atelectasis versus scarring. The lungs are hyperexpanded. Patient was told that she needed to follow up with Pulmonology but she has not done so. [facility] Medical History (Updated 05/29/24 @ 15:21 by Jasmin Calles NP) COPD with acute exacerbation Social History Patient Tobacco Use Status: Never used Tobacco Review of Systems Const All systems reviewed & are unremarkable except as noted in HPI and below Physical Exam Vital Signs: Last Vital Signs Temp 98 F 05/29/24 14:25 Pulse 129 H 05/29/24 14:25 BP 122/68 05/29/24 14:25 Pulse Ox 97 05/29/24 14:25 Oxygen Delivery Method Room Air 05/29/24 14:25 Const Nutritional Appearance: underweight Orientation/consciousness: patient oriented x3 Resp Other: Diminished Lung Sounds Effort & Inspection: normal respiratory effort and able to speak in complete sentences Auscultation: diminished lung sounds diffuse Cardio Heart sounds: S1 normal heart sound present and S2 normal heart sound present Neuro General: patient oriented x3 Assessment & Plan Assessment & Plan (1) COPD with acute exacerbation: Code(s): J44.1 - Chronic obstructive pulmonary disease with (acute) exacerbation Plan: Ordered SARs Ordered Prednisone Advised Patient to call Pulmonology for follow up. Orders: Orders SARS-CoV2/FLU/RSV Today R09.89 - Other specified symptoms and signs involving the circulatory and respiratory systems Medications: New 2 prednisone 20 mg PO DAILY 10 tabs 0RF J44.1 - Chronic obstructive pulmonary disease with (acute) exacerbation Coding Level of Care Code Est Pt Level 4 (83384) Diagnoses COPD with acute exacerbation J44.1 Time Spent (min) 20
[2024-05-29 14:25] VITALS: BP 122/68; PULSE 129; TEMP 36.6; O2SAT 97
== END 2024-05-29 15:24 | disposition home or self-care (01) ==
PROVIDERS: PCP Internal Medicine; Visit Provider Nurse Practitioner Family
DX: J44.1 Chronic obstructive pulmonary disease with (acute) exacerbation (principal)

== ENCOUNTER 2024-05-30 23:08 | Emergency (ER) | payer MEDICARE, MEDICAID, SELFPAY ==
--- NOTE | 2024-05-30 | ECG_ITS ---
Test Reason : TACHYCARDIA Blood Pressure : */* mmHG Vent. Rate : 119 BPM Atrial Rate : 119 BPM P-R Int : 140 ms QRS Dur : 84 ms QT Int : 332 ms P-R-T Axes : 80 69 51 degrees QTcB Int : 467 ms Sinus tachycardia with Premature supraventricular complexes Nonspecific ST abnormality Abnormal ECG When compared with ECG of 26-Apr-2024 20:31, Premature supraventricular complexes are now Present Nonspecific T wave abnormality now evident in Inferior leads T wave inversion no longer evident in Anterior leads Referred By: Generic ED Physician Electronically Signed By: ELIZABETH TAYLOR MD
--- NOTE | ~2024-05-30 | XR_ITS ---
CLINICAL HISTORY: cough, sob CHEST X-RAY FRONTAL AND LATERAL VIEWS COMPARISON: 04/26/2024. FINDINGS: Frontal and lateral views of the chest were performed. Cardiac size is within normal limits. The lungs are again noted to be hyperinflated, compatible with COPD. There is increased density in the lower lungs which is thought to be due to the patient's breast tissues. No definite acute infiltrate or pleural effusion. No pneumothorax. IMPRESSION: 1. No acute disease. 2. Emphysematous changes are again noted. This document has been electronically signed by: Edis Ma M.D. on 05/31/2024 00:29:06
[2024-05-30 23:14] VITALS: BP 118/74; BP 130/70; PULSE 115; PULSE 123; RESP 18; TEMP 36.9; O2SAT 96; BMI 15.7
--- NOTE | 2024-05-31 00:44 | ED.GENADULT ---
HPI - General Adult General Chief complaint: Wound/Laceration Stated complaint: leg wound Time Seen by Provider: 05/31/24 00:44 History of Present Illness ED Provider: Vidal VAZQUEZ narrative: The patient is a 73-year-old female with a history of peripheral vascular disease. She has a chronic wound on the dorsum of her right lower leg above the ankle. She goes to the wound clinic for this and wears a dressing on it. She also recently had an angioplasty of the right leg to improve blood flow because of this wound. She is on rivaroxaban. The night the patient was in bed when her cat jumped on the bed and somehow clawed her significantly on the right lower leg creating a very large skin tear the above the chronic wound. There was bleeding and she had pain. Her called an ambulance and she was brought to the hospital. Related Data Home Medications ?Medication ?Instructions ?Recorded ?Confirmed amlodipine 5 mg tablet mg PO 12/15/23 budesonide 160 mcg-glycopyr 9 inh inhalation 12/15/23 mcg-formot 4.8 mcg/actuation HFA inhaler (Breztri Aerosphere) ipratropium 0.5 mg-albuterol 3 mg ml inhalation 12/15/23 (2.5 mg base)/3 mL nebulization soln ipratropium 20 mcg-albuterol 100 1 puff inhalation QID 12/15/23 mcg/actuation mist for inhalation (Combivent Respimat) rivaroxaban 20 mg tablet (Xarelto) 20 mg PO DAILY 05/29/24 Previous Rx's ?Medication ?Instructions ?Recorded prednisone 20 mg tablet 20 mg PO DAILY #10 tabs 05/29/24 cephalexin 500 mg capsule 500 mg PO TID 4 days #12 caps 05/31/24 Allergies Allergy/AdvReac Type Severity Reaction Status Date / Time peanut Allergy Severe Anaphylaxis Verified 05/30/24 23:16 Review of Systems Review of Systems: Yes all other systems are reviewed and are negative [facility] Past Medical History Medical History (Updated 06/01/24 @ 00:01 by Maren oLpez) COPD with acute exacerbation Social History Social History Patient Tobacco Use Status: Never used Tobacco Smoked in Last 30 Days: No Use of substances other than those prescribed or required for medical reasons: No Advance Directives: No Advance Directives Information Provided: Yes Do you have a plan to hurt others: No Plan Physical Exam ED Vital Signs: Vital Signs - 24 hr 05/30/24 23:14 05/31/24 03:04 05/31/24 03:13 Temperature 98.4 F 98.4 F Pulse Rate 123 H 105 H 105 H Respiratory Rate 18 16 16 Blood Pressure 118/74 121/73 121/73 Pulse Oximetry 96 97 97 Oxygen Delivery Method Room Air Room Air Room Air BMI result Body Mass Index 15.7 Const Other: The patient is a quite frail looking, chronically ill-appearing 73-year-old who has a large skin tear to the middle portion of the right lower leg laterally. She does not seem in acute distress. HENMT Other: Face is symmetrical, mucous membranes moist. Eyes General: appearance normal, both eyes and all related structures Neck Neck: Yes full ROM and Yes no JVD Resp Effort & Inspection: normal respiratory effort Auscultation: clear to auscultation bilaterally Cardio Rate: regular rate Rhythm: regular rhythm Heart sounds: S1 normal heart sound present and S2 normal heart sound present Skin Other: There is a curved skin injury to the lateral aspect of the right lower leg consistent with a large skin tear. The length of the edge of the tear is approximately 10 mm. The curve of the injury makes a flap. The wound does not extend into the musculature. There is a wound to the posterior aspect of the lower leg just below the skin tear. The skin tear does not extend into the chronic wound. Neuro Other: The patient is awake and alert with a normal mental status. She seems neurologically intact. Cranial nerves are grossly intact. She seems generally weak but moves her extremities symmetrically and appropriately. Extrem Other: The patient has a large skin tear on the lateral aspect of the right lower leg. It was not actively bleeding. The patient is able to move the knee and the ankle. The foot is well-perfused. There is a chronic wound on the dorsum of the distal portion of the right lower leg. This is below the skin tear Medications Administered Discontinued Medications Generic Name Dose Route Start Last Admin Trade Name Freq PRN Reason Stop Dose Admin Cephalexin HCl 500 mg 05/31/24 02:31 05/31/24 02:39 Cephalexin 500 Mg Capsule PO 05/31/24 02:32 500 mg ONCE ONE Administration Lidocaine HCl 10 ml 05/31/24 01:14 05/31/24 01:19 Lidocaine Hcl 2 % Urojet 10 Ml Jel.Pf.Mreary TOPICAL 05/31/24 01:15 10 ml ONCE ONE Administration Procedures Laceration Laceration 1: Site: lower extremity Side (If applicable): left Size (cm): 10 Description: flap Depth: simple, single layer Pre-repair: wound explored, irrigated extensively and deep structures intact Technique: other (Steri-Strips with benzoin applied around the wound. Adequate wound edge approximation achieved.) Medical Decision Making Medical Decision Making [facility] Narrative: The patient is a 73-year-old woman on rivaroxaban who has sustained a fairly large skin tear to the right lower leg laterally. Remarkably this was somehow caused by a cat scratch. It certainly does not look like a typical cat scratch. It looks like a skin tear. The patient's wound was prepped with Betadine and the flap was opened and the wound was cleaned with saline. I used Steri-Strips to close the wound and achieved adequate wound edge approximation and coverage with Steri-Strips. The patient will be started on cephalexin prophylactically. Wound care instructions were reviewed with the patient including keeping the leg elevated and staying off the leg for the next several days. She has an appointment with the wound clinic next week. I think this would be appropriate follow up for this injury. Discharge Plan Discharge Clinical Impression: Skin tear of right lower leg without complication Patient Disposition: Home, Self-Care Additional Instructions: You have a large skin tear on the skin of your right lower leg. The wound was cleaned and the wound closed with Steri-Strips. Please plan on resting and taking it easy for the next several days. I would recommend staying off your feet and elevating your right leg to help reduce swelling and bleeding. Take the cephalexin (antibiotic) as prescribed. Change the external dressing over the wound daily and as needed. I anticipate the Steri-Strips will stay on for at least a week. If the Steri-Strips ends peel back you may trim the peeling ends with a scissors. Please keep your appointment at the wound clinic next week. My hope is they will evaluate your new wound and give you additional instructions. Eventually the Steri-Strips should fall off altogether. Please return to the emergency room if you feel you have developed any significant complication of the wound. Prescriptions: New cephalexin 500 mg capsule 500 mg PO TID 4 Days Qty: 12 0RF No Action Breztri Aerosphere 160-9-4.8 mcg/actuation HFA aerosol inhaler inhalation ipratropium-albuterol 0.5 mg-3 mg(2.5 mg base)/3 mL solution for nebulization inhalation Combivent Respimat 20-100 mcg/actuation mist 1 puff inhalation QID amlodipine 5 mg tablet PO Xarelto 20 mg tablet 20 mg PO DAILY prednisone 20 mg tablet 20 mg PO DAILY Qty: 10 0RF Referrals: [facility] Wound Care Management [Provider Group] (Skin tear) Juliette Castillo MD [Primary Care Provider] - (Skin tear) Interventions: ED Discharge Assessment Last Done: 05/31/24 03:13 Discharge Date/Time: 05/31/24 03:14 Print Language: Argentine
[2024-05-31] MEDS: Lidocaine HCl 2 % Urojet 10 ML JEL.PF.APP TOPICAL (01:19)
--- NOTE | 2024-05-31 01:54 | PC.NURSE ---
Provider to bedside for wound repair.
[2024-05-31] MEDS: cephALEXin 500 MG CAPSULE PO (02:39)
[2024-05-31 03:04] VITALS: BP 121/73; PULSE 105; RESP 16; O2SAT 97
[2024-05-31 03:13] VITALS: BP 121/73; PULSE 105; RESP 16; TEMP 36.9; O2SAT 97
== END 2024-05-31 03:14 | disposition home or self-care (01) ==
PROVIDERS: Emergency Provider Emergency Medicine; PCP Internal Medicine
DX: S81.811A Laceration without foreign body, right lower leg, initial encounter (principal); W55.03XA Scratched by cat, initial encounter; M79.661 Pain in right lower leg; Y93.84 Activity, sleeping; Y92.013 Bedroom of single-family (private) house as the place of occurrence of the external cause; Y99.9 Unspecified external cause status
CPT/HCPCS: 12004; 71046; 93005; 99284

== ENCOUNTER → 2024-05-30 23:30 | Outpatient (BNV) | payer MEDICARE, MEDICAID, SELFPAY | PROVIDERS: Emergency Provider Emergency Medicine; Visit Provider Radiology Diagnostic Radiology | DX: R06.02 Shortness of breath (principal); R05.9 Cough, unspecified | CPT/HCPCS: 71046 ==

== ENCOUNTER → 2024-05-30 23:31 | Outpatient (BNV) | payer MEDICARE, MEDICAID, SELFPAY | PROVIDERS: Emergency Provider Emergency Medicine; PCP Internal Medicine; Visit Provider Internal Medicine Cardiovascular Disease | DX: I49.1 Atrial premature depolarization (principal); R00.0 Tachycardia, unspecified | CPT/HCPCS: 93010 ==

== ENCOUNTER 2024-06-10 09:52 | Emergency (ER) | payer MEDICARE, MEDICAID, SELFPAY ==
[2024-06-10] VITALS (7 sets, daily range): BP systolic 120–139; BP diastolic 61–70; PULSE 90–129; RESP 14–25; TEMP 36.6–37.5; O2SAT 95–97; BMI 13.2
--- NOTE | 2024-06-10 | ECG_ITS ---
Test Reason : SOB Blood Pressure : */* mmHG Vent. Rate : 87 BPM Atrial Rate : 87 BPM P-R Int : 148 ms QRS Dur : 80 ms QT Int : 386 ms P-R-T Axes : 75 58 64 degrees QTcB Int : 464 ms Sinus rhythm with marked sinus arrhythmia Nonspecific ST and T wave abnormality Borderline ECG When compared with ECG of 10-Jun-2024 10:08, No significant change was found Referred By: Binu Wright Electronically Signed By: REGGIE HUGHES
--- NOTE | ~2024-06-10 | XR_ITS ---
CLINICAL HISTORY: sob 2 views chest Comparison: CR - XR CHEST 2V - 05/30/24 23:[address]/SR - CT ANGIO CHEST PE PROTOCOL - 04/26/24 20:14 EDT Findings: Cardiac and mediastinal contours are normal. There is chronic interstitial prominence with scattered chronic peribronchial thickening. Question faint left lower lobe density. No effusion. No pneumothorax. No acute osseous finding. Impression: Questioned new faint left lower lobe density superimposed upon chronic interstitial changes. This document has been electronically signed by: Dread Donis MD on 06/10/2024 11:29:52
--- NOTE | 2024-06-10 10:00 | ECG_ITS ---
Test Reason : SOD/ TACHY Blood Pressure : */* mmHG Vent. Rate : 124 BPM Atrial Rate : 124 BPM P-R Int : 142 ms QRS Dur : 78 ms QT Int : 308 ms P-R-T Axes : 81 60 47 degrees QTcB Int : 442 ms Sinus tachycardia Low voltage QRS Septal infarct , age undetermined Nonspecific ST and T wave abnormality Abnormal ECG When compared with ECG of 30-May-2024 23:31, No significant changes seen Referred By: Generic ED Physician Electronically Signed By: REGGIE HUGHES
[2024-06-10 10:24] LABS: MANUAL DIFF FLAG NO
[2024-06-10 10:30] LABS: Basophils Absolute Auto 0.1 X10*3/uL (0.0-0.2); Basophils Percent Auto 0.5 % (0-2); Eosinophils Absolute Auto 0.2 X10*3/uL (0.0-0.4); Eosinophils Percent Auto 1.8 % (0-4); Hemoglobin 10.3 g/dl (12.0-16.0); Imm Gran Abs Auto 0.06 X10*3/uL (0.00-0.03); Imm Gran Pct Auto 0.5 % (0.0-0.4); Lymphocytes Absolute Auto 1.3 X10*3/uL (1.2-4.9); Lymphocytes Percent Auto 10.2 % (20-40); Mean Corpuscular HGB Conc 32.2 g/dl (31.0-35.0); Mean Corpuscular Volume 93.3 fL (80.0-98.0); Mean Platelet Volume 8.2 fL (9.4-12.3); Monocytes Absolute Auto 1.2 X10*3/uL (0.1-1.2); Monocytes Percent Auto 9.8 % (2-11); Neutrophils Absolute Auto 9.6 x10*3/uL (2.0-8.3); Neutrophils Percent Auto 77.2 % (45-73); Platelet Count 477 X10*3/uL (160-400); Red Blood Count 3.43 X10*6/uL (4.20-5.50); Red Cell Distribution Width 13.2 % (11.0-16.0); White Blood Count 12.5 X10*3/uL (4.8-10.8)
--- NOTE | 2024-06-10 10:34 | ED.SOB ---
HPI - SOB/Dyspnea General Chief Complaint: Dyspnea Stated Complaint: sob Time Seen by Provider: 06/10/24 10:10 Source: patient Mode of arrival: ambulatory Limitations: no limitations History of Present Illness ED Provider: DR. Wright HPI Narrative: 73-year-old female history of smoking, COPD presented with shortness of breath, productive cough with clear sputum, no blood in her sputum no fever, chills. No recent travel, no recent prolonged immobilization, no history of DVT. Related Data Home Medications ?Medication ?Instructions ?Recorded ?Confirmed amlodipine 5 mg tablet mg PO 12/15/23 budesonide 160 mcg-glycopyr 9 inh inhalation 12/15/23 mcg-formot 4.8 mcg/actuation HFA inhaler (Breztri Aerosphere) ipratropium 0.5 mg-albuterol 3 mg ml inhalation 12/15/23 (2.5 mg base)/3 mL nebulization soln ipratropium 20 mcg-albuterol 100 1 puff inhalation QID 12/15/23 mcg/actuation mist for inhalation (Combivent Respimat) rivaroxaban 20 mg tablet (Xarelto) 20 mg PO DAILY 05/29/24 Previous Rx's ?Medication ?Instructions ?Recorded prednisone 20 mg tablet 20 mg PO DAILY #10 tabs 05/29/24 cephalexin 500 mg capsule 500 mg PO TID 4 days #12 caps 05/31/24 azithromycin 250 mg tablet See Rx Instructions PO .COMPLEX #6 06/10/24 (Zithromax Z-Ovidio) tabs prednisone 20 mg tablet 20 mg PO BID #10 tabs 06/10/24 Allergies Allergy/AdvReac Type Severity Reaction Status Date / Time peanut Allergy Severe Anaphylaxis Verified 06/10/24 09:59 Review of Systems Review of Systems: All other systems are reviewed and are negative Constitutional: Reports as per HPI and Reports no additional constitutional complaints Eyes: Reports as per HPI and Reports no additional eye complaints Reports system reviewed and no additional complaints, except as documented Cardiovascular: Reports as per HPI and Reports no additional cardiovascular complaints Respiratory: Reports as per HPI and Reports no additional respiratory complaints Gastrointestinal: Reports as per HPI and Reports no additional gastrointestinal complaints Genitourinary: Reports no additional female genitourinary complaints Musculoskeletal: Reports no additional musculoskeletal complaints Skin/Breast: Reports system reviewed and no additional complaints, except as docu Psychiatric: Reports no additional psychiatric complaints Endocrine: Reports no additional endocrine complaints Hematologic/Lymphatic: Reports no additional hematologic/lymphatic complaints Allergic/Immunologic: Reports no additional allergic/immunologic complaints Reports system reviewed and no additional complaints, except as documented and Reports Abnormal speech present [facility] Past Medical History Medical History COPD with acute exacerbation Social History Social History Patient Tobacco Use Status: Never used Tobacco Advance Directives: No Advance Directives Information Provided: No Physical Exam Vital Signs: Vital Signs: Last Vital Signs Temp 99.5 F 06/10/24 14:00 Pulse 90 06/10/24 14:00 Resp 25 H 06/10/24 14:00 BP 127/69 06/10/24 14:00 Pulse Ox 96 06/10/24 14:00 O2 Del Method Room Air 06/10/24 14:00 BMI result Body Mass Index 13.2 Vital signs have been reviewed and appear to be correct. Blood pressure elevated. Heart rate normal. Respiratory rate normal. Temperature normal. Oxygen saturation normal. Appearance: Alert. Oriented X3. No acute distress. Head: Normal external exam. Normocephalic. Atraumatic. No Soliz signs noted. No raccoon eyes noted Eyes: PERRLA. EOMI. Conjunctiva and sclera normal. Eyelids normal. ENT: TM's Normal. Pharynx normal. Uvula midline. Moist mucous membranes. No trismus noted. No drooling noted. No muffled voice noted. Neck: Normal inspection. Neck supple. FROM. No adenopathy. Thyroid Normal. No meningeal signs. No neck mass noted. CVS: Normal heart rate and rhythm. Heart sound normal. No murmurs noted. Pulses normal throughout. Respiratory: No respiratory distress. Painless inspiration. Breath sounds normal. Diffuse expiratory wheezing bilaterally, prolonged expiration. Chest nontender. No accessory muscle usage noted or decreased air movement noted. Abdomen: Soft and nontender. Bowel sounds normal in all 4 quadrants. No distention noted. No organomegaly noted. No visible injury noted. Back: No CVA tenderness. Full range of motion noted. Skin: Skin warm and dry. Normal skin color. Normal skin turgor. No rashes/lesions/lacerations noted. Extremities: No lower extremity edema. Extremities exhibit normal range of motion. Extremities nontender. Neuro: Oriented X 3. Cranial nerve exam: II-XII are grossly intact No motor deficit. No sensory deficit. Reflexes normal. Course Reevaluation(s) Reevaluation #1: Feels better after was given bronchodilator and steroid. Will discharge on Z-Ovidio and 5 days of prednisone. Time: 14:50 Medications Administered Discontinued Medications Generic Name Dose Route Start Last Admin Trade Name Freq PRN Reason Stop Dose Admin Magnesium Sulfate 2 gm in 50 mls @ 25 mls/hr 06/10/24 10:32 06/10/24 13:08 Magnesium Sulfate/H2o IV 06/10/24 12:31 Infused ONCE ONE Infusion Levalbuterol HCl 1.25 mg 06/10/24 10:43 06/10/24 10:47 Levalbuterol Hcl 1.25 Mg/3 Ml Vial.Neb INHALE 06/10/24 10:44 1.25 mg ONCE ONE Administration Methylprednisolone Sodium Succinate 125 mg 06/10/24 10:32 06/10/24 10:45 Methylprednisolone Sod Succ 125 Mg/2 Ml Vial IVPUSH 06/10/24 10:33 125 mg ONCE ONE Administration Medical Decision Making Differential Diagnosis Differential Diagnoses: The differential diagnosis associated with the presentation includes (Pneumonia, pneumothorax, pleural effusion, acute bronchitis, COPD exacerbation, pulmonary embolism, ACS.) Admission/Observation Consideration of admission/observation: Escalation of care including admission/observation considered Lab Data MDM Lab Attestation statement: I reviewed the patient's lab results. 06/10/24 10:16 06/10/24 10:16 Labs: Lab Results 06/10/24 Range/Units 10:16 WBC 12.5 H (4.8-10.8) X10*3/uL RBC 3.43 L (4.20-5.50) X10*6/uL Hgb 10.3 L (12.0-16.0) g/dl Hct 32.0 L (37.0-47.0) % MCV 93.3 (80.0-98.0) fL MCH 30.0 (27.0-33.0) pg MCHC 32.2 (31.0-35.0) g/dl RDW 13.2 (11.0-16.0) % Plt Count 477 H (160-400) X10*3/uL MPV 8.2 L (9.4-12.3) fL Immature Gran % (Auto) 0.5 H (0.0-0.4) % Neut % (Auto) 77.2 H (45-73) % Lymph % (Auto) 10.2 L (20-40) % [place] % (Auto) 9.8 (2-11) % Eos % (Auto) 1.8 (0-4) % Baso % (Auto) 0.5 (0-2) % Lymph # (Auto) 1.3 (1.2-4.9) X10*3/uL [place] # (Auto) 1.2 (0.1-1.2) X10*3/uL Eos # (Auto) 0.2 (0.0-0.4) X10*3/uL Baso # (Auto) 0.1 (0.0-0.2) X10*3/uL Abs Immat Gran (auto) 0.06 H (0.00-0.03) X10*3/uL Absolute Neuts (auto) 9.6 H (2.0-8.3) x10*3/uL Absolute Nucleated RBC 0.000 (0.0-0.012) X10*3/uL Nucleated RBC % (auto) 0.0 (0.0-0.2) /100WBC D-Dimer High Sensitivty < 150 NG/ML Sodium 139 (135-145) mmol/L Potassium 4.0 (3.3-5.1) mmol/L Chloride 102 (96-108) mmol/L Carbon Dioxide 28 (22-29) mmol/L Anion Gap 13 (12-20) BUN 13 (9-16) mg/dL Creatinine 0.61 (0.5-1.4) mg/dL Estim Creat Clear Calc 50.3 Estimated GFR > 60 Random Glucose 134 H (60-115) mg/dL Calcium 9.1 (8.4-10.2) mg/dL Total Bilirubin 0.3 (0.0-1.0) mg/dL AST 24 (5-31) U/L ALT 8 (0-31) U/L Alkaline Phosphatase 109 (39-117) U/L Troponin I High Sens 6.8 (<3.5-17.0) ng/L Total Protein 6.5 (6.5-8.0) g/dL Albumin 3.8 (3.5-5.0) g/dL Independent Interpretation I performed an independent interpretation of an: Plain X-Ray (Chest:Questioned new faint left lower lobe density superimposed upon chronic interstitial changes.) Radiology Impression Discussion of test interpretation with radiology: I have reviewed the radiologist's reading. Discharge Plan Discharge Clinical Impression: COPD with acute exacerbation Patient Disposition: Home, Self-Care Instructions: COPD (Chronic Obstructive Pulmonary Disease) (ED) Prescriptions: New prednisone 20 mg tablet 20 mg PO BID Qty: 10 0RF azithromycin [Zithromax Z-Ovidio] 250 mg tablet See Rx Instructions .ROUTE .COMPLEX Qty: 6 0RF Rx Instructions: For 250 mg dose pack: take 500 mg today (day 1), then 250 mg for 4 days (days 2-5) No Action cephalexin 500 mg capsule 500 mg PO TID 4 Days Qty: 12 0RF Breztri Aerosphere 160-9-4.8 mcg/actuation HFA aerosol inhaler inhalation ipratropium-albuterol 0.5 mg-3 mg(2.5 mg base)/3 mL solution for nebulization inhalation Combivent Respimat 20-100 mcg/actuation mist 1 puff inhalation QID amlodipine 5 mg tablet PO Xarelto 20 mg tablet 20 mg PO DAILY prednisone 20 mg tablet 20 mg PO DAILY Qty: 10 0RF Referrals: Juliette Castillo MD [Primary Care Provider] - Print Language: Maldivian
[2024-06-10] MEDS: methylPREDNISolone Sod Succ 125 MG/2 ML VIAL IVPUSH (10:45)
[2024-06-10] MEDS: Magnesium Sulfate/H2O 2 GM/50 ML PIGGYBACK IV (10:45)
[2024-06-10] MEDS: levalbuterol HCL 1.25 MG/3 ML VIAL.NEB INHALE (10:47)
[2024-06-10 10:49] LABS: Troponin-I High Sensitivity 6.8 ng/L (<3.5-17.0)
[2024-06-10 10:53] LABS: D Dimer High Sensitivity < 150 NG/ML
[2024-06-10 11:04] LABS: Alanine Aminotransferase 8 U/L (0-31); Albumin Level 3.8 g/dL (3.5-5.0); Alkaline Phosphatase 109 U/L (39-117); Anion Gap 13 (12-20); Aspartate Amino Transferase 24 U/L (5-31); Bilirubin Total 0.3 mg/dL (0.0-1.0); Blood Urea Nitrogen 13 mg/dL (9-16); Calcium 9.1 mg/dL (8.4-10.2); Carbon Dioxide 28 mmol/L (22-29); Chloride 102 mmol/L (96-108); Creatinine Clr Calc Pharmacy 50.3; Estimated Glomerular Filt Rate > 60; Glucose Random 134 mg/dL (60-115); Sodium 139 mmol/L (135-145); Total Protein 6.5 g/dL (6.5-8.0)
--- NOTE | 2024-06-10 11:07 | PC.NURSE ---
73-year-old female history of smoking, COPD presented with shortness of breath, productive cough with clear sputum. cardiac monitor maintained and stach noted with occas PAC's. Lungs diminished throughout with left base crackles. Respirations even and non-labored. No sob noted at this time. Abdomen flat, soft, non-tender with positive bowel sound. Positive pedal pulses with no edema. Mag infusing at this time.
== END 2024-06-10 15:46 | disposition home or self-care (01) ==
PROVIDERS: Emergency Provider Emergency Medicine; PCP Internal Medicine
DX: J44.1 Chronic obstructive pulmonary disease with (acute) exacerbation (principal); I49.8 Other specified cardiac arrhythmias; R06.02 Shortness of breath; R00.0 Tachycardia, unspecified; R05.9 Cough, unspecified; Z87.891 Personal history of nicotine dependence; Z79.899 Other long term (current) drug therapy
CPT/HCPCS: 36415; 71046; 80053; 84484; 85025; 85379; 93005; 94640; 96365; 96366; 96375; 99284; 99285; J2919; J3475

== ENCOUNTER → 2024-06-10 10:00 | Outpatient (BNV) | payer MEDICARE, MEDICAID, SELFPAY | PROVIDERS: Emergency Provider Emergency Medicine; PCP Internal Medicine; Visit Provider Radiology Vascular & Interventional Radiology | DX: R06.02 Shortness of breath (principal) | CPT/HCPCS: 71046 ==

== ENCOUNTER → 2024-06-10 10:00 | Outpatient (BNV) | payer MEDICARE, MEDICAID, SELFPAY | PROVIDERS: Emergency Provider Emergency Medicine; PCP Internal Medicine; Visit Provider Internal Medicine | DX: R00.0 Tachycardia, unspecified (principal); R06.02 Shortness of breath | CPT/HCPCS: 93010 ==

== ENCOUNTER 2024-06-15 08:17 | Emergency (ER) | payer MEDICARE, SELFPAY ==
[2024-06-15] VITALS (7 sets, daily range): BP systolic 117–139; BP diastolic 59–78; PULSE 91–116; RESP 15–22; TEMP 36.6–36.8; O2SAT 96–98; BMI 14.5
--- NOTE | ~2024-06-15 | CT_ITS ---
EXAMINATION: CT CHEST WITH IV CONTRAST INDICATION: R Lower lobe infiltrate vs mass COMPARISON: Comparison is made with the prior examination dated 04/26/2024. Correlation is also made with PA and lateral views of the chest performed earlier in the day. TECHNIQUE: Helical CT scan of the chest was performed following administration of intravenous contrast. Coronal and sagittal reformatted images were generated and reviewed. This CT exam was performed with one or more of the following dose reduction techniques: automated exposure control, adjustment of the mA and/or kV according to patient size, use of iterative reconstruction technique. DLP: 134 mGy-cm CHEST: THYROID: The thyroid is unremarkable. LUNGS: Again seen are moderate emphysematous changes. There is mild biapical pleural and parenchymal scarring. There are scattered tiny 2-3 mm nodules in the lungs without change. No abnormality is seen in the right lower lung zone to correspond to the 1.3 cm rounded opacity in this region noted on chest x-ray. This may have been artifactual in nature related to a rib. MEDIASTINUM: There is no mediastinal lymphadenopathy. LEROY: There is no hilar lymphadenopathy. CARDIOVASCULATURE: The heart is normal in size. There is no pericardial effusion. The thoracic aorta is normal in caliber. DEGREE OF CORONARY CALCIFICATION: moderate PLEURA: There is no pleural effusion. No pneumothorax. MAIN AIRWAYS: The mainstem bronchi and proximal branches are patent. There is mild bronchiectasis in the lower lobes. AXILLA: There is no axillary lymphadenopathy. BONES AND SOFT TISSUES: There is mild degenerative disc disease of the spine. UPPER ABDOMEN: The visualized portions of the liver, spleen, and adrenals are unremarkable. CT/CT chest w IV con IMPRESSION: Moderate emphysema. Scattered 2-3 mm nodules in both lungs without change. No abnormality is seen in the right lower lung zone to correspond to the previously described 1.3 cm opacity noted on chest x-ray. This is likely artifactual in nature related to a rib. Electronically signed by: Clem Alberto MD 06/15/2024 11:48 AM EDT
--- NOTE | ~2024-06-15 | XR_ITS ---
EXAMINATION: XR CHEST CLINICAL INFORMATION: cp COMPARISON: June 10, 2024. TECHNIQUE: 2 views of the chest were obtained. FINDINGS: Hyperinflated lungs. Pulmonary reticular pattern. There is a 1.3 cm round opacity in the right lower hemithorax. Bilateral apical lung scarring. No pleural effusion. No pneumothorax. Cardiomediastinal silhouette size is normal. Multilevel thoracic and upper lumbar spondylosis. Osteopenia versus osteoporosis. XR/XR chest 2V IMPRESSION: Consider COPD emphysematous type changes Round opacity, right lower hemithorax question intrathoracic versus related to right breast and or chest wall. Electronically signed by: Andrea Marquez MD 06/15/2024 10:30 AM EDT
--- NOTE | 2024-06-15 08:28 | ECG_ITS ---
Test Reason : cp/sob Blood Pressure : */* mmHG Vent. Rate : 117 BPM Atrial Rate : 117 BPM P-R Int : 120 ms QRS Dur : 88 ms QT Int : 326 ms P-R-T Axes : 80 66 62 degrees QTcB Int : 454 ms Sinus tachycardia with Premature supraventricular complexes Minimal voltage criteria for LVH, may be normal variant ( [place] product ) Nonspecific ST abnormality Abnormal ECG When compared with ECG of 10-Jun-2024 14:29, Premature supraventricular complexes are now Present Referred By: Generic ED Physician Electronically Signed By: Joshua Berg
--- NOTE | 2024-06-15 08:43 | ED.SOB ---
HPI - SOB/Dyspnea General Chief Complaint: Dyspnea Stated Complaint: sob Time Seen by Provider: 06/15/24 08:43 Source: patient, family and RN notes reviewed Mode of arrival: ambulatory Limitations: no limitations History of Present Illness ED Provider: Mell Barrientos PA-C HPI Narrative: This is a 73-year-old female, with a past medical history of hypertension, COPD, and peripheral vascular disease with occlusions with stent placement on Xarelto, who presents emergency department with concerns for ongoing shortness of breath for many months. Patient states that her symptoms happened ongoing since a procedure that she had formed in March. She states that she had a chronic wound to her right lower extremity with stent placement and was placed on blood thinners. She states that since then she has had intermittent shortness of breath. She has been seen here in the emergency room twice. She states that her symptoms have improved with antibiotics and steroids however they have not fully resolved. She went to her vascular appointment, and states that her pulse was ?all over the place?, and she was told that she may have atrial fibrillation which she does not have a history of - she did not have an EKG in the office. She denies any fevers, chills, congestion, cough, sputum production, urinary symptoms, diarrhea, constipation, bloody or black stool. She does endorse intermittent midsternal chest pain, which she does not have at this time. She does report bilateral arm soreness which has been ongoing for several days. No trauma or injury to her arms to suggest why she was having the symptoms. She denies any abdominal pain, nausea, vomiting or diarrhea. She has been taking her maintenance inhaler medication, as well as updrafts which has provided her with some relief. No other complaints or concerns at this time. MD elicited complaint: shortness of breath and chest pain Pertinent past history: COPD Onset (ago): day(s) Timing: constant Severity: moderate Exacerbating factors: nothing Relieving factors: bronchodilators Known history of: COPD Associated symptoms: chest pain Treatment prior to arrival: none Related Data Home oxygen amount: none Home Medications ?Medication ?Instructions ?Recorded ?Confirmed amlodipine 5 mg tablet mg PO 12/15/23 budesonide 160 mcg-glycopyr 9 inh inhalation 12/15/23 mcg-formot 4.8 mcg/actuation HFA inhaler (Breztri Aerosphere) ipratropium 0.5 mg-albuterol 3 mg ml inhalation 12/15/23 (2.5 mg base)/3 mL nebulization soln ipratropium 20 mcg-albuterol 100 1 puff inhalation QID 12/15/23 mcg/actuation mist for inhalation (Combivent Respimat) rivaroxaban 20 mg tablet (Xarelto) 20 mg PO DAILY 05/29/24 Previous Rx's ?Medication ?Instructions ?Recorded prednisone 20 mg tablet 20 mg PO DAILY #10 tabs 05/29/24 cephalexin 500 mg capsule 500 mg PO TID 4 days #12 caps 05/31/24 azithromycin 250 mg tablet See Rx Instructions PO .COMPLEX #6 06/10/24 (Zithromax Z-Ovidio) tabs prednisone 20 mg tablet 20 mg PO BID #10 tabs 06/10/24 prednisone 10 mg tablet 10 mg PO DIRECTED #16 tabs 06/15/24 Allergies Allergy/AdvReac Type Severity Reaction Status Date / Time peanut Allergy Severe Anaphylaxis Verified 06/15/24 08:24 Review of Systems Review of Systems: Constitutional: No Weight loss, No Fever, No Chills, No Night Sweats, No Fatigue, No Malaise ENT/Mouth: No Hearing loss, No Ear Pain, No Nasal Congestion, No Sinus Pain, No Hoarseness, No sore throat, No Rhinorrhea, No Swallowing Difficulty Eyes: No Eye Pain, No Swelling, No Redness, No Foreign Body, No Discharge, No Vision Changes Cardiovascular: + Chest Pain, + SOB, No Orthopnea, No Edema, No Palpitations Respiratory: No Cough, No Sputum, No Wheezing, No Smoke Exposure, No Dyspnea Gastrointestinal: No Nausea, No Vomiting, No Diarrhea, No Constipation, No Abdominal pain, No Hematochezia, No Melena Genitourinary: No irregular bleeding, No Dysuria, No Urinary Frequency, No Hematuria, No Urinary Incontinence/retention, No Urgency, No Flank Pain, No Urinary Flow Changes, No Hesitancy Musculoskeletal: No joint pain, No Myalgias, No Joint Swelling Skin: No Skin Lesions, No rash Neuro: No Weakness, No Numbness, No Paresthesias, No Loss of Consciousness, No Dizziness, No Headache Psych: No Anxiety/Panic, No Depression, No SI/HI/AH/VH, No Social Issues, Heme/Lymph: No Bruising, No Bleeding,No Lymphadenopathy Endocrine: No Polyuria, No Polydipsia, No Temperature Intolerance Yes all other systems are reviewed and are negative Constitutional: Constitutional: Reports as per [facility] Past Medical History Attestation statement: The following information was validated with the patient. Medical History COPD with acute exacerbation Social History Social History Patient Tobacco Use Status: Never used Tobacco Physical Exam Vital Signs: Vital Signs: Last Vital Signs Temp 98.1 F 06/15/24 15:48 Pulse 91 06/15/24 15:48 Resp 16 06/15/24 15:48 BP 131/78 06/15/24 15:48 Pulse Ox 97 06/15/24 15:48 O2 Del Method Room Air 06/15/24 15:48 BMI result Body Mass Index 14.5 Const: General: cooperative, comfortable and no acute distress Orientation/consciousness: patient oriented x3 Limitations: no limitations HEENT: Head: Yes normal to inspection, Yes normocephalic and Yes atraumatic Ears: hearing grossly normal bilaterally General nose exam: Normal external nose present Face and sinus: Yes normal facial exam Mouth: Normal oral and palatal mucosa present, oropharynx normal and moist mucous membranes Throat: Yes posterior oropharynx normal Eyes: General: appearance normal, both eyes and all related structures Eyelids: Yes eyelids normal Conjunctivae: conjunctivae normal Sclerae: sclerae normal Pupils: Equal, round and reactive pupils present EOM: EOMs intact bilaterally Neck: Neck: Yes normal visual inspection, Yes full ROM and Yes no lymphadenopathy Lymphatic: no lymphadenopathy noted Chest: Chest palpation & inspection: normal inspection of the chest Resp: Other: Diminished lung sounds in bilateral lung bases, with inspiratory and expiratory wheezes noted in the upper lung terry. Effort & Inspection: normal respiratory effort and able to speak in complete sentences Cardio: Rate: regular rate Rhythm: regular rhythm Heart sounds: S1 normal heart sound present and S2 normal heart sound present GI: Inspection: Yes normal to inspection Skin: General skin exam: no rashes or lesions noted Trauma: no lacerations or abrasions Wounds: no wounds Neuro: General: patient oriented x3 and moves all extremities Cranial nerves: Yes Equal, round and reactive pupils present Extrem: General: Yes normal to inspection Right upper extremity: normal to inspection Left upper extremity: normal to inspection Right lower extremity: normal to inspection Left lower extremity: normal to inspection Course Reevaluation(s) Reevaluation #1: Lactic acid returns, elevated at 3.5. Patient states that she has been doing albuterol updrafts, and had an updraft while she was in the department today. she remains to be tachycardic however it appears that she was always tachycardic per her past medical records, she is afebrile. Will treat with ceftriaxone IV fluids. We will continue to monitor pending overall workup today. Time: 10:31 Reevaluation #2: Chest CT revealing moderate emphysema, and scattered 2-3 nodules in both lungs without change. No abnormality is seen in the right lower lung zone to correspond to the previously described 1.3 cm opacity noted on chest x-ray. Troponin x2 negative. BNP 151, CRP negative. Lactic acidosis likely secondary to updrafts. She does have a leukocytosis noted at 15 however she has been on a prednisone taper. Again she does have elevated lactic acidosis at 3.2, this is due to updrafts. CRP is within normal limits, this is unlikely a acute process. Do not need to repeat a 3rd lactic. The leukocytosis is secondary to the steroids that she has been on. She states that she is overall feeling better. She has an appointment with her home care aide in July, I advised patient that she should be followed more closely as she needs to have a better management of her emphysema. There is no indication for antibiotics at this time. She was no longer tachycardic, oxygen saturation 97% on room air. She is speaking full sentences under no acute distress. At this time we will discharge patient with a longer tapering schedule for prednisone, and she will follow-up with her primary care physician, home care aide as soon as possible. Patient was given strict return precautions. She understands and agrees with plan. Patient stable for discharge. Time: 14:43 Medications Administered Discontinued Medications Generic Name Dose Route Start Last Admin Trade Name Freq PRN Reason Stop Dose Admin Ceftriaxone Sodium 1 gm 06/15/24 10:30 06/15/24 10:43 Ceftriaxone Sodium 1 Gm Vial IVPUSH 06/15/24 10:31 1 gm ONCE ONE Administration Albuterol Sulfate 2.5 mg/ 0 mg 06/15/24 09:13 06/15/24 09:19 Albuterol/Ipratropium 3 ml INHALE 06/15/24 09:14 5 dose ONCE ONE Administration Sodium Chloride 1,000 mls @ 999 mls/hr 06/15/24 10:31 06/15/24 11:48 Ns IV 06/15/24 11:31 Infused .Q1H1M ONE Infusion Iohexol 100 ml 06/15/24 11:31 06/15/24 11:32 Iohexol 350 Mg/Ml 100 Ml Infus..Btl IV 06/15/24 11:32 65 ml ONCE ONE Administration Medical Decision Making Medical Decision Making MDM Narrative: This is a 73-year-old female, with a past medical history of COPD, hypertension, and peripheral vascular disease with lower extremity stent placement on Xarelto, who presents emergency department with concerns for ongoing shortness for breath for several months. On arrival, oxygen saturation 97% on room air, she was tachycardic at 116bpm. She has been seen here twice for similar symptoms. Last seen June 10 where she was diagnosed with a COPD exacerbation with a chest x-ray concerning for question new faint left lower lobe density superimposed upon chronic interstitial changes. She has a last dose of prednisone and antibiotics today. She states that her symptoms have slightly improved however not. She does have follow-up with her home care aide in July, and she has an echocardiogram scheduled for Wednesday. Differential diagnoses include COPD exacerbation, ACS, PE, pneumonia. Diminished lung sounds in bilateral lung bases, with inspiratory and expiratory wheezes noted in the upper lung terry. Plan: Labs, EKG, viral swabs, chest x-ray, ED bronch protocol Differential Diagnosis Differential Diagnoses: The differential diagnosis associated with the presentation includes See above Admission/Observation Consideration of admission/observation: Escalation of care including admission/observation considered Lab Data [facility] Lab Attestation statement: I reviewed the patient's lab results. See course comment and MDM 06/15/24 08:39 06/15/24 08:39 Labs: Lab Results 06/15/24 06/15/24 06/15/24 Range/Units 08:39 09:38 12:09 WBC 15.0 H (4.8-10.8) X10*3/uL RBC 3.61 L (4.20-5.50) X10*6/uL Hgb 10.7 L (12.0-16.0) g/dl Hct 33.9 L (37.0-47.0) % MCV 93.9 (80.0-98.0) fL MCH 29.6 (27.0-33.0) pg MCHC 31.6 (31.0-35.0) g/dl RDW 12.9 (11.0-16.0) % Plt Count 520 H (160-400) X10*3/uL MPV 8.4 L (9.4-12.3) fL Immature Gran % (Auto) 0.8 H (0.0-0.4) % Neut % (Auto) 85.2 H (45-73) % Lymph % (Auto) 6.9 L (20-40) % Laurel % (Auto) 6.9 (2-11) % Eos % (Auto) 0.1 (0-4) % Baso % (Auto) 0.1 (0-2) % Lymph # (Auto) 1.0 L (1.2-4.9) X10*3/uL Laurel # (Auto) 1.0 (0.1-1.2) X10*3/uL Eos # (Auto) 0.0 (0.0-0.4) X10*3/uL Baso # (Auto) 0.0 (0.0-0.2) X10*3/uL Abs Immat Gran (auto) 0.12 H (0.00-0.03) X10*3/uL Absolute Neuts (auto) 12.8 H (2.0-8.3) x10*3/uL Absolute Nucleated RBC 0.000 (0.0-0.012) X10*3/uL Nucleated RBC % (auto) 0.0 (0.0-0.2) /100WBC D-Dimer High Sensitivty < 150 NG/ML Sodium 139 (135-145) mmol/L Potassium 3.9 (3.3-5.1) mmol/L Chloride 100 (96-108) mmol/L Carbon Dioxide 27 (22-29) mmol/L Anion Gap 16 (12-20) BUN 13 (9-16) mg/dL Creatinine 0.62 (0.5-1.4) mg/dL Estim Creat Clear Calc 49.4 Estimated GFR > 60 Random Glucose 127 H (60-115) mg/dL Lactic Acid 3.5 H* (0.5-2.0) mmol/L Lactic Acid F/U @ 2Hr 3.2 H* (0.5-2.0) mmol/L Calcium 9.4 (8.4-10.2) mg/dL Total Bilirubin 0.3 (0.0-1.0) mg/dL AST 20 (5-31) U/L ALT 12 (0-31) U/L Alkaline Phosphatase 86 (39-117) U/L Troponin I High Sens 7.6 (<3.5-17.0) ng/L C-Reactive Protein 0.19 (< or = 0.50) mg/dL B-Natriuretic Peptide 151 H (<100) pg/mL Total Protein 6.5 (6.5-8.0) g/dL Albumin 4.0 (3.5-5.0) g/dL Influenza Type A (PCR) NEGATIVE (Negative) Influenza Type B (PCR) NEGATIVE (Negative) RSV RNA Qual (PCR) NEGATIVE (Negative) SARS-CoV-2 RNA (RT-PCR) NEGATIVE (Negative) 06/15/24 Range/Units 12:21 WBC (4.8-10.8) X10*3/uL RBC (4.20-5.50) X10*6/uL Hgb (12.0-16.0) g/dl Hct (37.0-47.0) % MCV (80.0-98.0) fL MCH (27.0-33.0) pg MCHC (31.0-35.0) g/dl RDW (11.0-16.0) % Plt Count (160-400) X10*3/uL MPV (9.4-12.3) fL Immature Gran % (Auto) (0.0-0.4) % Neut % (Auto) (45-73) % Lymph % (Auto) (20-40) % Laurel % (Auto) (2-11) % Eos % (Auto) (0-4) % Baso % (Auto) (0-2) % Lymph # (Auto) (1.2-4.9) X10*3/uL Laurel # (Auto) (0.1-1.2) X10*3/uL Eos # (Auto) (0.0-0.4) X10*3/uL Baso # (Auto) (0.0-0.2) X10*3/uL Abs Immat Gran (auto) (0.00-0.03) X10*3/uL Absolute Neuts (auto) (2.0-8.3) x10*3/uL Absolute Nucleated RBC (0.0-0.012) X10*3/uL Nucleated RBC % (auto) (0.0-0.2) /100WBC D-Dimer High Sensitivty NG/ML Sodium (135-145) mmol/L Potassium (3.3-5.1) mmol/L Chloride (96-108) mmol/L Carbon Dioxide (22-29) mmol/L Anion Gap (12-20) BUN (9-16) mg/dL Creatinine (0.5-1.4) mg/dL Estim Creat Clear Calc Estimated GFR Random Glucose (60-115) mg/dL Lactic Acid (0.5-2.0) mmol/L Lactic Acid F/U @ 2Hr (0.5-2.0) mmol/L Calcium (8.4-10.2) mg/dL Total Bilirubin (0.0-1.0) mg/dL AST (5-31) U/L ALT (0-31) U/L Alkaline Phosphatase (39-117) U/L Troponin I High Sens 7.4 (<3.5-17.0) ng/L C-Reactive Protein (< or = 0.50) mg/dL B-Natriuretic Peptide (<100) pg/mL Total Protein (6.5-8.0) g/dL Albumin (3.5-5.0) g/dL Influenza Type A (PCR) (Negative) Influenza Type B (PCR) (Negative) RSV RNA Qual (PCR) (Negative) SARS-CoV-2 RNA (RT-PCR) (Negative) Independent Interpretation I performed an independent interpretation of an: EKG Interpretation: EKG normal sinus rhythm with PVCs, at a ventricular rate of 96 beats per minute, QT QTC 362/457, no STEMI. Vent. Rate : 96 BPM Atrial Rate : 96 BPM P-R Int : 130 ms QRS Dur : 84 ms QT Int : 362 ms P-R-T Axes : 62 66 60 degrees QTcB Int : 457 ms Sinus rhythm with Premature supraventricular complexes Otherwise normal ECG When compared with ECG of 15-Jun-2024 08:33, No significant change was found Referred By: Mell Barrientos Radiology Impression Discussion of test interpretation with radiology: I have reviewed the radiologist's reading. Radiologist Impression: CHEST: THYROID: The thyroid is unremarkable. LUNGS: Again seen are moderate emphysematous changes. There is mild biapical pleural and parenchymal scarring. There are scattered tiny 2-3 mm nodules in the lungs without change. No abnormality is seen in the right lower lung zone to correspond to the 1.3 cm rounded opacity in this region noted on chest x-ray. This may have been artifactual in nature related to a rib. MEDIASTINUM: There is no mediastinal lymphadenopathy. LEROY: There is no hilar lymphadenopathy. CARDIOVASCULATURE: The heart is normal in size. There is no pericardial effusion. The thoracic aorta is normal in caliber. DEGREE OF CORONARY CALCIFICATION: moderate PLEURA: There is no pleural effusion. No pneumothorax. MAIN AIRWAYS: The mainstem bronchi and proximal branches are patent. There is mild bronchiectasis in the lower lobes. AXILLA: There is no axillary lymphadenopathy. BONES AND SOFT TISSUES: There is mild degenerative disc disease of the spine. UPPER ABDOMEN: The visualized portions of the liver, spleen, and adrenals are unremarkable. CT/CT chest w IV con IMPRESSION: Moderate emphysema. Scattered 2-3 mm nodules in both lungs without change. No abnormality is seen in the right lower lung zone to correspond to the previously described 1.3 cm opacity noted on chest x-ray. This is likely artifactual in nature related to a rib. Electronically signed by: Clem Alberto MD 06/15/2024 11:48 AM EDT RP Dictated By: Clem Alberto MD Discharge Plan Discharge Clinical Impression: Emphysema lung, Chronic shortness of breath Patient Disposition: Home, Self-Care Instructions: Emphysema (ED), How Your Lungs Work (ED) Additional Instructions: You were seen in the emergency department due to shortness of breath. Your white blood cell count was slightly elevated which is likely due to the prednisone that you are currently on as well as the breathing treatments you have been giving yourself. Your EKG was reassuring. Your CT of your chest showed moderate emphysema as well as scattered 2-3 mm nodules in both your lungs without change. You need to follow-up with your home care aide for better management of your shortness of breath. Continue drinking plenty of fluids as your heart rate is quick. Continue taking prednisone, I am placing you on a longer tapering schedule. We also stella blood cultures on you, we will call you if they are positive. If they are positive you will likely need to return. There was no evidence of an infection at this time therefore antibiotics are not warranted today. Please call your home care aide today as well as her primary care physician for follow-up. If any new or worsening symptoms occur including but not limited to severe shortness of breath, chest pain, please seek emergent care. Prescriptions: New prednisone 10 mg tablet 10 mg PO DIRECTED Qty: 16 0RF Rx Instructions: see taper instructions Take prednisone 40mg (4 tablets) x 1 day Take prednisone 30mg (3 tablets) x 2 days Take prednisone 20mg (2 tablets) x 2 days Take prednisone 10mg (1 tablet) x 1 day No Action cephalexin 500 mg capsule 500 mg PO TID 4 Days Qty: 12 0RF prednisone 20 mg tablet 20 mg PO BID Qty: 10 0RF azithromycin [Zithromax Z-Ovidio] 250 mg tablet See Rx Instructions .ROUTE .COMPLEX Qty: 6 0RF Rx Instructions: For 250 mg dose pack: take 500 mg today (day 1), then 250 mg for 4 days (days 2-5) Vincenzotri Aerosphere 160-9-4.8 mcg/actuation HFA aerosol inhaler inhalation ipratropium-albuterol 0.5 mg-3 mg(2.5 mg base)/3 mL solution for nebulization inhalation Combivent Respimat 20-100 mcg/actuation mist 1 puff inhalation QID amlodipine 5 mg tablet PO Xarelto 20 mg tablet 20 mg PO DAILY prednisone 20 mg tablet 20 mg PO DAILY Qty: 10 0RF Interventions: ED Discharge Assessment Last Done: 06/15/24 15:48 Discharge Date/Time: 06/15/24 15:48 Print Language: Citizen Of [place]
[2024-06-15 08:44] LABS: MANUAL DIFF FLAG NO
[2024-06-15 08:50] LABS: Basophils Percent Auto 0.1 % (0-2); Eosinophils Percent Auto 0.1 % (0-4); Hematocrit 33.9 % (37.0-47.0); Hemoglobin 10.7 g/dl (12.0-16.0); Imm Gran Abs Auto 0.12 X10*3/uL (0.00-0.03); Imm Gran Pct Auto 0.8 % (0.0-0.4); Lymphocytes Percent Auto 6.9 % (20-40); Mean Corpuscular HGB Conc 31.6 g/dl (31.0-35.0); Mean Corpuscular Hemoglobin 29.6 pg (27.0-33.0); Mean Corpuscular Volume 93.9 fL (80.0-98.0); Mean Platelet Volume 8.4 fL (9.4-12.3); Monocytes Percent Auto 6.9 % (2-11); Neutrophils Absolute Auto 12.8 x10*3/uL (2.0-8.3); Neutrophils Percent Auto 85.2 % (45-73); Platelet Count 520 X10*3/uL (160-400); Red Blood Count 3.61 X10*6/uL (4.20-5.50); Red Cell Distribution Width 12.9 % (11.0-16.0)
[2024-06-15 09:03] LABS: Alanine Aminotransferase 12 U/L (0-31); Alkaline Phosphatase 86 U/L (39-117); Anion Gap 16 (12-20); Aspartate Amino Transferase 20 U/L (5-31); Bilirubin Total 0.3 mg/dL (0.0-1.0); Blood Urea Nitrogen 13 mg/dL (9-16); Calcium 9.4 mg/dL (8.4-10.2); Carbon Dioxide 27 mmol/L (22-29); Chloride 100 mmol/L (96-108); Creatinine Clr Calc Pharmacy 49.4; Estimated Glomerular Filt Rate > 60; Glucose Random 127 mg/dL (60-115); Potassium 3.9 mmol/L (3.3-5.1); Sodium 139 mmol/L (135-145); Total Protein 6.5 g/dL (6.5-8.0)
[2024-06-15 09:09] LABS: B Type Natriuretic Peptide 151 pg/mL (<100); Troponin-I High Sensitivity 7.6 ng/L (<3.5-17.0)
[2024-06-15] MEDS: Albuterol Sulfate 2.5 MG, Albuterol/Iprat 2.5/0.5MG 3 ML 3 ML INHALE (09:19)
[2024-06-15 09:56] LABS: Influenza A PCR NEGATIVE (Negative); Influenza B PCR NEGATIVE (Negative); Resp Syncy Virus RNA Qual PCR NEGATIVE (Negative); SARS COV2 PCR INHOUSE NEGATIVE (Negative)
[2024-06-15 10:06] LABS: D Dimer High Sensitivity < 150 NG/ML
[2024-06-15 10:27] LABS: Lactic Acid 3.5 mmol/L (0.5-2.0)
[2024-06-15] MEDS: cefTRIAXone sodium 1 GM VIAL IVPUSH (10:43)
[2024-06-15] MEDS: 0.9 % Sodium Chloride 1,000 ML 999 ML IV (10:43)
[2024-06-15 10:50] LABS: C Reactive Protein 0.19 mg/dL (< or = 0.50)
[2024-06-15] MEDS: iohexoL 350 MG/ML 100 ML INFUS..BTL IV (11:32)
[2024-06-15 11:42] LABS: Reflex Lactate? Lactic Acid Added
[2024-06-15 12:32] LABS: ~Lactic Acid-LAB USE ONLY 3.2 mmol/L (0.5-2.0)
[2024-06-15 14:13] LABS: Troponin-I High Sensitivity 7.4 ng/L (<3.5-17.0)
[2024-06-15 14:13] LABS: Reflex Lactate? 2 Y
--- NOTE | 2024-06-15 14:56 | ECG_ITS ---
Test Reason : palpitations Blood Pressure : */* mmHG Vent. Rate : 96 BPM Atrial Rate : 96 BPM P-R Int : 130 ms QRS Dur : 84 ms QT Int : 362 ms P-R-T Axes : 62 66 60 degrees QTcB Int : 457 ms Sinus rhythm with Premature supraventricular complexes Otherwise normal ECG When compared with ECG of 15-Jun-2024 08:33, No significant change was found Referred By: Mell Barrientos Electronically Signed By: Joshua Berg
== END 2024-06-15 15:48 | disposition home or self-care (01) ==
PROVIDERS: Physician Assistant Medical; Emergency Provider Emergency Medicine; PCP Internal Medicine
DX: J43.9 Emphysema, unspecified (principal); R06.02 Shortness of breath; J44.9 Chronic obstructive pulmonary disease, unspecified; R00.2 Palpitations; R07.89 Other chest pain; Z79.899 Other long term (current) drug therapy; Z03.818 Encounter for observation for suspected exposure to other biological agents ruled out
CPT/HCPCS: 0241U; 36415; 71046; 71260; 80053; 83605; 83880; 84484; 85025; 85379; 86140; 87040; 93005; 94640; 96361; 96374; 99284; 99285; J0696; Q9967

== ENCOUNTER → 2024-06-15 08:28 | Outpatient (BNV) | payer MEDICARE, SELFPAY | PROVIDERS: Emergency Provider Emergency Medicine; PCP Internal Medicine; Visit Provider Internal Medicine Cardiovascular Disease | DX: I49.1 Atrial premature depolarization (principal); R00.0 Tachycardia, unspecified | CPT/HCPCS: 93010 ==

== ENCOUNTER → 2024-06-15 10:18 | Outpatient (BNV) | payer MEDICARE, SELFPAY | PROVIDERS: PCP Internal Medicine; Visit Provider Radiology Diagnostic Radiology | DX: J43.8 Other emphysema (principal); R91.8 Other nonspecific abnormal finding of lung field; R07.9 Chest pain, unspecified | CPT/HCPCS: 71046; 71260 ==

== ENCOUNTER 2024-08-03 15:36 | Outpatient (REF) | payer MEDICARE, SELFPAY ==
--- NOTE | ~2024-08-03 | XR_ITS ---
EXAMINATION: XR FOOT, RIGHT CLINICAL INFORMATION: S90.31XA - Contusion of right foot, initial encounter COMPARISON: None available. TECHNIQUE: AP, lateral, and oblique views of the right foot. FINDINGS: No acute fracture or deformity. Joint spaces are preserved. There is no joint diastases. There is osteopenia. XR/XR foot RT min 3V IMPRESSION: Osteopenia, no acute abnormality. Electronically signed by: Stuart Enriquez MD 08/03/2024 04:36 PM EDT
== END 2024-08-03 15:37 | disposition home or self-care (01) ==
LOC: HO.HMGCX 15:36
PROVIDERS: PCP Internal Medicine; Visit Provider Nurse Practitioner Family
DX: S90.31XA Contusion of right foot, initial encounter (principal)
CPT/HCPCS: 73630; 99212

== ENCOUNTER 2024-08-03 15:36 | Outpatient (AMB) | payer MEDICARE, SELFPAY ==
--- NOTE | 2024-08-03 15:38 | AM.OFFWIN_ITS ---
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 Pt reports tripping down a stair and landed on her right heel/foot. Reports pain with weight bearing, walking and standing. PFS Medical History COPD with acute exacerbation Social History Patient Tobacco Use Status: Current everyday Tobacco user (about 1 cigarette per day) Review of Systems Const All systems reviewed & are unremarkable except as noted in HPI and below Physical Exam Vital Signs: Last Vital Signs Temp 98.2 F 08/03/24 15:43 Pulse 127 H 08/03/24 15:43 BP 114/62 08/03/24 15:43 Pulse Ox 92 08/03/24 15:43 Oxygen Delivery Method Room Air 08/03/24 15:43 BMI result Body Mass Index 13.8 Const General: no acute distress; No comfortable Nutritional Appearance: underweight Orientation/consciousness: patient oriented x3 Neuro General: patient oriented x3, gait normal (Walks with a limp due to pain) and moves all extremities Gait exam (Neuro): Assisted gait required Gait assisted method: crutches Extrem Right lower extremity: foot Details: normal to inspection, tenderness Location: of the dorsal foot and of the calcaneus and toes with normal ROM; no crepitus Assessment & Plan Assessment & Plan (1) Contusion of right foot: Code(s): S90.31XA - Contusion of right foot, initial encounter Qualifiers: Encounter type: initial encounter Qualified Code(s): S90.31XA - Contusion of right foot, initial encounter Plan: Ordered Xray Foot NSAIDs or Acetaminophen for pain relief Ice/hot Provided Clutches for walking. Orders: Orders XR foot RT min 3V Today S90.31XA - Contusion of right foot, initial encounter Medications: New acetaminophen 1,000 mg (2 x 500 mg) PO Q6H PRN 30 caps 0RF pain S90.31XA - Contusion of right foot, initial encounter prednisone 20 mg PO DAILY 5 tabs 0RF S90.31XA - Contusion of right foot, initial encounter Coding Level of Care Code Est Pt Level 4 (88356) Diagnoses Contusion of right foot, initial encounter S90.31XA Encounter type: initial encounter Time Spent (min) 20
[2024-08-03 15:43] VITALS: BP 114/62; PULSE 127; TEMP 36.8; O2SAT 92; BMI 13.8
== END 2024-08-03 16:52 | disposition home or self-care (01) ==
PROVIDERS: PCP Internal Medicine; Visit Provider Nurse Practitioner Family
DX: S90.31XA Contusion of right foot, initial encounter (principal)

== ENCOUNTER → 2024-08-03 16:19 | Outpatient (BNV) | payer MEDICARE, SELFPAY | PROVIDERS: PCP Internal Medicine; Visit Provider Radiology Diagnostic Radiology | DX: M79.671 Pain in right foot (principal); M85.88 Other specified disorders of bone density and structure, other site | CPT/HCPCS: 73630 ==

== ENCOUNTER 2024-11-21 09:47 | Outpatient (AMB) | payer MEDICARE, SELFPAY ==
--- NOTE | 2024-11-21 09:57 | MHC.OFFWIV ---
Intake Vital Signs 11/21/24 10:00 Height 5 ft 7 in Weight 86 lb BMI 13.5 BP 110/62 Blood Pressure Location Lt brachial Position Sitting Respiration 16 Pulse 86 Pulse Source Pulse Oximeter Temp 97.8 F Temp Source Oral Pulse Oximetry (%) 97 Oxygen Delivery Method Room Air Intake Visit Reasons: EP-lt leg cut Intake Note: Pt is here today with a skin tear on her Lt calf it happened this morning Patient Tobacco Use Status: Current everyday Tobacco user (about 1 cigarette per day) Allergies peanut Allergy (Severe, Verified 11/21/24 10:03) Anaphylaxis HPI HPI Comments History of Present Illness Details History of Present Illness - The patient is a 74-year-old female presenting with a skin tear on the left rear calf/leg. - The skin tear occurred when the patient scraped her leg on the steps of her truck earlier today. - The patient is on blood thinners, which may affect healing. - She has poor circulation in both legs and has been receiving treatment for other wounds at [facility] wound care center. - Previous wounds include a blood blister on the toe and other wounds that required wound care. - The patient's tetanus vaccination is up-to-date, with the last Tdap received in August of the previous year. - Denies history of diabetes Physical Exam General: Cooperative, healthy appearing, comfortable, no acute distress and well developed Orientation: Patient oriented x3 Limitations: No limitations Head: Normal to inspection Ears: Hearing grossly normal bilaterally Nose: Normal External nose present Face and sinus: Normal facial exam Eyes: Appearance normal, both eyes and all related structures Neck: Normal visual inspection and Yes full ROM Respiratory: Normal respiratory effort and able to speak in complete sentences. Skin: Skin tear on the back of the left leg, no signs of infection noted Neuro: Patient oriented x3 Extremities: Normal to inspection, except for gauze wrap on right calf and large J shaped skin tear on left posterior calf, no warmth, no drainage, flap in place. [facility] Medical History (Updated 11/21/24 @ 10:23 by Gia Gomez PA-C) Contusion of right foot COPD with acute exacerbation Social History Patient Tobacco Use Status: Current everyday Tobacco user (about 1 cigarette per day) Review of Systems Const All systems reviewed & are unremarkable except as noted in HPI and below Physical Exam Vital Signs: Last Vital Signs Temp 97.8 F 11/21/24 10:00 Pulse 86 11/21/24 10:00 Resp 16 11/21/24 10:00 BP 110/62 11/21/24 10:00 Pulse Ox 97 11/21/24 10:00 Oxygen Delivery Method Room Air 11/21/24 10:00 BMI result Body Mass Index 13.5 Assessment & Plan Assessment & Plan (1) Skin tear of left lower leg without complication: Code(s): S81.812A - Laceration without foreign body, left lower leg, initial encounter Qualifiers: Encounter type: initial encounter Qualified Code(s): S81.812A - Laceration without foreign body, left lower leg, initial encounter Plan: Patient was informed and verbally consented to the use of an ambient scribe for clinic note documentation during this visit. Skin Tear On The Left Leg - Irrigated the wound with sterile saline and scant amount of betadine and applied a non-adhesive dressing with gauze wrapping. - Keep the wound clean and dry, and change the dressing daily. May leave open to air at home, cover when out in public. - Follow up with the wound care center for further evaluation and management as she is already a patient there for another skin issue on her right leg. - Monitor for signs of infection such as fevers, redness, warmth, or drainage. Coding Level of Care Code New Pt Level 3 (59939) Diagnoses Skin tear of left lower leg without complication, initial encounter S81.812A Encounter type: initial encounter
[2024-11-21 10:00] VITALS: BP 110/62; PULSE 86; RESP 16; TEMP 36.6; O2SAT 97; BMI 13.5
--- OUTSIDE RECORDS SUMMARY | 2024-11-21 11:14 | XMS_ITS ---
Author Name [facility] Organization Unknown Care Team Organization Name Specialty Phone Email Start Date End Da te [facility] 12/23/2021
== END 2024-11-21 10:33 | disposition home or self-care (01) ==
PROVIDERS: PCP Internal Medicine; Visit Provider Physician Assistant
DX: S81.812A Laceration without foreign body, left lower leg, initial encounter (principal)

== ENCOUNTER → 2024-11-21 09:47 | Outpatient (BNVA) | payer MEDICARE, SELFPAY | PROVIDERS: PCP Internal Medicine; Visit Provider Physician Assistant | DX: S81.812A Laceration without foreign body, left lower leg, initial encounter (principal); X58.XXXA Exposure to other specified factors, initial encounter; Y93.9 Activity, unspecified; Y92.9 Unspecified place or not applicable; Y99.9 Unspecified external cause status | CPT/HCPCS: 99212 ==